=== PATIENT | female | born 1980 | race African-American/Black ===

== ENCOUNTER 2016-03-01 18:25 | Emergency (ER) | payer MEDICAID ==
--- NOTE | 2016-03-01 19:01 | ER Document Report ---
ED Medical Screen (RME) - General Chief Complaint: Fever Stated Complaint: FEVER,VOMITING,DIARRHEA,HEADACHES Time seen by provider: 18:57 Mode of Arrival: Ambulatory Information source: Patient Notes: 35-year-old female presents to ED for nausea vomiting diarrhea fever bodyaches headache and back pain since Monday. States she laid down most the time Monday night and Monday all day. Patient has a elevated blood pressure states she has a history of high blood pressure. She also has a temp of 102.6 in RME I have greeted and performed a rapid initial assessment of this patient. A comprehensive ED assessment and evaluation of the patient, analysis of test results and completion of medical decision making process will be conducted by an additional ED providers. TRAVEL OUTSIDE OF THE [place] IN LAST 30 DAYS: No - Related Data Allergies/Adverse Reactions: latex Allergy (Verified 06/30/15 12:36) Penicillins Allergy (Verified 06/30/15 12:36) Past Medical History - Past Medical History Cardiac Medical History: Reports: Hx Hypertension Neurological Medical History: Reports: Hx Seizures - last 2 weeks - Immunizations Immunizations up to date: Yes Hx Diphtheria, Pertussis, Tetanus Vaccination: Yes
[2016-03-01] MEDS ORDERED: ACETAMINOPHEN 325 MG TABLET PO ONE (19:02)
[2016-03-01 19:04] VITALS: BP 164/110
[2016-03-01 19:44] LABS: VENOUS BLOOD BASE EXCESS 0.8 mmol/L; VENOUS BLOOD HCO3 26.4 mmol/L (20-32); VENOUS BLOOD PCO2 45.6 mmHg (35-63); VENOUS BLOOD PH 7.38 (7.30-7.42)
[2016-03-01 19:47] LABS: ABSOLUTE LYMPHOCYTES (AUTO) 0.7 10^3/uL (0.5-4.7); ABSOLUTE MONOCYTES (AUTO) 0.8 10^3/uL (0.1-1.4); ABSOLUTE NEUT (AUTO) 4.1 10^3/uL (1.7-8.2); BASOPHILS % (AUTO) 0.4 % (0-2); HEMATOCRIT 45.2 % (36.0-47.0); HGB HCT DIFFERENCE -0.2; LYMPHOCYTES % (AUTO) 12.4 % (13-45); MEAN CORPUSCULAR HEMOGLOBIN 31.1 pg (27.0-33.4); MEAN CORPUSCULAR HGB CONC 33.2 g/dL (32.0-36.0); MEAN CORPUSCULAR VOLUME 94 fl (80-97); MONOCYTES % (AUTO) 13.6 % (3-13); RED BLOOD COUNT 4.82 10^6/uL (3.72-5.28); RED CELL DISTRIBUTION WIDTH 12.9 % (11.5-14.0); SEGMENTED NEUTROPHILS % (AUTO) 73.6 % (42-78); WHITE BLOOD COUNT 5.6 10^3/uL (4.0-10.5)
[2016-03-01 19:51] LABS: PROTHROMBIN TIME 12.5 SEC (11.4-15.4)
[2016-03-01 19:52] LABS: APPEARANCE,URINE SLIGHTLY-CLOUDY; BILIRUBIN,URINE NEGATIVE (NEGATIVE); GLUCOSE, URINE NEGATIVE (NEGATIVE); KETONES,URINE TRACE mg/dL (NEGATIVE); LEUKOCYTE ESTERASE,URINE NEGATIVE (NEGATIVE); NITRITE,URINE NEGATIVE (NEGATIVE); PROTEIN,URINE 30 mg/dL (NEGATIVE); URINE SPECIFIC GRAVITY 1.027; UROBILINOGEN,URINE NEGATIVE mg/dL (<2.0)
[2016-03-01 20:02] LABS: ALANINE AMINOTRANSFERASE 37 U/L (9-52); ALBUMIN 5.2 g/dL (3.5-5.0); ALKALINE PHOSPHATASE 57 U/L (38-126); ANION GAP 15 (5-19); ASPARTATE AMINO TRANSFERASE 26 U/L (14-36); BILIRUBIN,TOTAL 0.8 mg/dL (0.2-1.3); BLOOD UREA NITROGEN 9 mg/dL (7-20); CARBON DIOXIDE 27 mmol/L (22-30); CHLORIDE 98 mmol/L (98-107); CREATININE RESULT 1.07 mg/dL (0.52-1.25); GLUCOSE 86 mg/dL (75-110); POTASSIUM 4.1 mmol/L (3.6-5.0); SODIUM 140.1 mmol/L (137-145); TOTAL PROTEIN 8.9 g/dL (6.3-8.2)
--- NOTE | 2016-03-02 14:57 | EKG REPORT ---
SEVERITY:- BORDERLINE ECG - SINUS RHYTHM PROBABLE LEFT ATRIAL ABNORMALITY : Confirmed by: Susan Sullivan MD 02-Mar-2016 14:56:39
== END 2016-03-01 20:45 | disposition left against medical advice (07) ==
LOC: ER 18:25
DX: Z53.9 Procedure and treatment not carried out, unspecified reason (principal); R50.9 Fever, unspecified; R11.10 Vomiting, unspecified; R19.7 Diarrhea, unspecified; R51 Headache
CPT/HCPCS: 93005; 99281; 36415; 87040; 87086; 82962; 84703; 85025; 85610; 80053; 81001; 82803; 83605; 71020; 93010; J3490

== ENCOUNTER 2016-07-31 13:52 | Emergency (ER) | payer MEDICAID ==
[2016-07-31 13:59] VITALS: BP 149/105
--- NOTE | 2016-07-31 16:19 | ER Document Report ---
HPI - HPI Pain Level: 3 Context: 36 yo female presents to ED with 2 complaints. 1.pain to right upper back x 2 days. has had similar pain intermittantly x 6-8 mos. no trauma, + increased stress recently. no radiculpathy, paresthesia, fever. 2. lower abdominal pain x 1 month. dull, intermittant. denies dysuria, vaginal pain or discharge. no fever Associated Symptoms: Nausea Exacerbated by: Movement Relieved by: Denies Similar symptoms previously: Yes - ROS Systems Reviewed and Negative: Yes All other systems reviewed and negative - DERM Skin Color: Normal Past Medical History - General Information source: Patient - Social History Smoking Status: Current Every Day Smoker Frequency of alcohol use: None Lives with: Family Family History: Arthritis, CAD, CVA, DM, Hyperlipidemia, Hypertension, Malignancy. denies: COPD, Thyroid Disfunction Patient has suicidal ideation: No Patient has homicidal ideation: No - Past Medical History Cardiac Medical History: Reports: Hx Hypertension Neurological Medical History: Reports: Hx Seizures - last 2 weeks Renal/ Medical History: Denies: Hx Peritoneal Dialysis - Immunizations Immunizations up to date: Yes Hx Diphtheria, Pertussis, Tetanus Vaccination: Yes Vertical Provider Document - CONSTITUTIONAL Agree With Documented VS: Yes Exam Limitations: No Limitations - INFECTION CONTROL TRAVEL OUTSIDE OF THE [place] IN LAST 30 DAYS: No - HEENT HEENT: Atraumatic, Normal ENT Exam, PERRLA - NECK Neck: Supple, Other - + right trapezius tenderness - RESPIRATORY Respiratory: Breath Sounds Normal, No Respiratory Distress O2 Sat by Pulse Oximetry: 98 - CARDIOVASCULAR Cardiovascular: Regular Rate, Regular Rhythm - GI/ABDOMEN Gastrointestinal: Abdomen Soft, Abdomen Non-Tender, Normal Bowel Sounds. negative: Abdominal Guarding, Abdominal Rebound - BACK Notes: + focal tenderness right periscapular area, + muscle cord palpated. - MUSCULOSKELETAL/EXTREMETIES Musculoskeletal/Extremeties: MAEW, FROM, Non-Tender - NEURO Level of Consciousness: Awake, Alert, Appropriate Course - Re-evaluation Re-evalutation: 07/31/16 17:43 test is postitve pt aware of results BP is noted to be elevated today. + hx/o HTN. denies any chest pain, shortness of breath, headache or dizziness. - Vital Signs Vital signs: Temp Pulse Resp BP Pulse Ox 98.1 F 92 16 149/105 H 98 07/31/16 13:55 07/31/16 13:55 07/31/16 13:55 07/31/16 13:55 07/31/16 13:55 Discharge - Discharge Clinical Impression: Muscle strain, Elevated blood pressure reading Qualifiers: Weeks of gestation: 9 weeks Qualified Code(s): Z3A.09 - 9 weeks gestation of Condition: Stable Disposition: HOME, SELF-CARE Instructions: Ice Packs ([facility]), Warm Packs ([facility]), Muscle Strain ([facility]), ([facility]) Additional Instructions: Your test is postive please follow up with your primary care for an OB referral for care rest and hydrate Your back pain is coming from a muscle strain recommend heat, massage and gentle stretches as demonstrated Forms: Elevated Blood Pressure
[2016-07-31 17:25] LABS: APPEARANCE,URINE SLIGHTLY-CLOUDY; BILIRUBIN,URINE NEGATIVE (NEGATIVE); GLUCOSE, URINE NEGATIVE (NEGATIVE); KETONES,URINE NEGATIVE (NEGATIVE); LEUKOCYTE ESTERASE,URINE NEGATIVE (NEGATIVE); NITRITE,URINE NEGATIVE (NEGATIVE); PROTEIN,URINE NEGATIVE (NEGATIVE); URINE SPECIFIC GRAVITY 1.027; UROBILINOGEN,URINE NEGATIVE mg/dL (<2.0)
== END 2016-07-31 18:01 | disposition home or self-care (01) ==
LOC: ER 13:52
DX: O9A.211 Injury, poisoning and certain other consequences of external causes complicating pregnancy, first trimester (principal); T14.8 Other injury of unspecified body region; O99.89 Other specified diseases and conditions complicating pregnancy, childbirth and the puerperium; M54.89 Other dorsalgia; O26.891 Other specified pregnancy related conditions, first trimester; R10.30 Lower abdominal pain, unspecified; O99.331 Smoking (tobacco) complicating pregnancy, first trimester; O16.1 Unspecified maternal hypertension, first trimester; Z3A.09 9 weeks gestation of pregnancy
CPT/HCPCS: 81001; 81025; 99283

== ENCOUNTER 2016-08-11 00:23 | Emergency (ER) | payer MEDICAID ==
[2016-08-11 00:42] VITALS: BP 187/101
== END 2016-08-11 02:10 | disposition left against medical advice (07) ==
LOC: ER 00:23
DX: Z53.9 Procedure and treatment not carried out, unspecified reason (principal); R53.1 Weakness

== ENCOUNTER 2016-12-26 09:18 | Outpatient (CLI) | payer MEDICAID ==
[2016-12-26 10:00] LABS: APPEARANCE,URINE CLEAR; BILIRUBIN,URINE NEGATIVE (NEGATIVE); GLUCOSE, URINE NEGATIVE (NEGATIVE); KETONES,URINE NEGATIVE (NEGATIVE); LEUKOCYTE ESTERASE,URINE TRACE (NEGATIVE); NITRITE,URINE NEGATIVE (NEGATIVE); PROTEIN,URINE NEGATIVE (NEGATIVE); URINE SPECIFIC GRAVITY 1.025; UROBILINOGEN,URINE NEGATIVE mg/dL (<2.0)
[2016-12-26 10:22] LABS: ABSOLUTE LYMPHOCYTES (AUTO) 1.1 10^3/uL (0.5-4.7); ABSOLUTE MONOCYTES (AUTO) 0.5 10^3/uL (0.1-1.4); ABSOLUTE NEUT (AUTO) 4.9 10^3/uL (1.7-8.2); BASOPHILS % (AUTO) 0.4 % (0-2); EOSINOPHILS % (AUTO) 0.4 % (0-6); HEMATOCRIT 31.8 % (36.0-47.0); HEMOGLOBIN 10.8 g/dL (12.0-15.5); HGB HCT DIFFERENCE 0.6; LYMPHOCYTES % (AUTO) 16.6 % (13-45); MEAN CORPUSCULAR HEMOGLOBIN 31.2 pg (27.0-33.4); MEAN CORPUSCULAR HGB CONC 33.9 g/dL (32.0-36.0); MEAN CORPUSCULAR VOLUME 92 fl (80-97); MONOCYTES % (AUTO) 7.7 % (3-13); RED BLOOD COUNT 3.46 10^6/uL (3.72-5.28); RED CELL DISTRIBUTION WIDTH 12.6 % (11.5-14.0); SEGMENTED NEUTROPHILS % (AUTO) 74.9 % (42-78); WHITE BLOOD COUNT 6.5 10^3/uL (4.0-10.5)
[2016-12-26 10:31] LABS: URINE BARBITURATES SCREEN NEGATIVE; URINE METHADONE SCREEN NEGATIVE; URINE OPIATES LOW NEGATIVE; URINE PHENCYCLIDINE SCREEN NEGATIVE
[2016-12-26 10:37] LABS: ALANINE AMINOTRANSFERASE 25 U/L (9-52); ALBUMIN 3.3 g/dL (3.5-5.0); ALKALINE PHOSPHATASE 38 U/L (38-126); ANION GAP 13 (5-19); ASPARTATE AMINO TRANSFERASE 13 U/L (14-36); BILIRUBIN,DIRECT 0.2 mg/dL (0.0-0.4); BILIRUBIN,TOTAL 0.4 mg/dL (0.2-1.3); BLOOD UREA NITROGEN 5 mg/dL (7-20); CALCIUM 8.7 mg/dL (8.4-10.2); CARBON DIOXIDE 21 mmol/L (22-30); CHLORIDE 106 mmol/L (98-107); CREATININE RESULT 0.69 mg/dL (0.52-1.25); GLUCOSE 118 mg/dL (75-110); LDH 316 U/L (313-618); POTASSIUM 3.4 mmol/L (3.6-5.0); SODIUM 139.7 mmol/L (137-145); URIC ACID 4.3 mg/dL (2.5-6.2)
[2016-12-26 10:42] LABS: URINE CREATININE 269.2 mg/dL (16-327)
== END 2016-12-26 11:22 | disposition home or self-care (01) ==
LOC: LC 09:18
PROVIDERS: ATTEND Student in an Organized Health Care Education/Training Program
DX: O11.2 Pre-existing hypertension with pre-eclampsia, second trimester (principal); Z3A.24 24 weeks gestation of pregnancy
CPT/HCPCS: 36415; 80053; 80307; 81001; 82570; 83615; 84156; 84550; 85025

== ENCOUNTER 2017-01-19 23:09 | Outpatient (CLI) | payer MEDICAID ==
[2017-01-19] MEDS ORDERED: ACETAMINOPHEN 325 MG TABLET PO ONE (23:39)
[2017-01-19] MEDS ORDERED: ACETAMINOPHEN 325 MG TABLET ONE (23:40)
[2017-01-20] MEDS ORDERED: ACETAMINOPHEN WITH CODEINE #3 TABLET PO ONE (00:20)
[2017-01-20] MEDS ORDERED: ACETAMINOPHEN WITH CODEINE #3 TABLET ONE (00:23)
[2017-01-20 01:16] LABS: APPEARANCE,URINE CLEAR; BILIRUBIN,URINE NEGATIVE (NEGATIVE); GLUCOSE, URINE NEGATIVE (NEGATIVE); KETONES,URINE NEGATIVE (NEGATIVE); LEUKOCYTE ESTERASE,URINE NEGATIVE (NEGATIVE); NITRITE,URINE NEGATIVE (NEGATIVE); PROTEIN,URINE NEGATIVE (NEGATIVE); URINE SPECIFIC GRAVITY 1.006; UROBILINOGEN,URINE NEGATIVE mg/dL (<2.0)
[2017-01-20 02:15] LABS: URINE BARBITURATES SCREEN NEGATIVE; URINE METHADONE SCREEN NEGATIVE; URINE PHENCYCLIDINE SCREEN NEGATIVE
[2017-01-20 02:24] LABS: URINE OPIATES LOW UNCONFIRMED POSITIVE
== END 2017-01-20 00:56 | disposition home or self-care (01) ==
LOC: LC 23:09
PROVIDERS: ATTEND Obstetrics & Gynecology Gynecology
PROC: 4A1HXCZ Monitoring of Products of Conception, Cardiac Rate, External Approach (ICD-10-PCS; principal; 2017-01-19)
DX: O36.8130 Decreased fetal movements, third trimester, not applicable or unspecified (principal); Z3A.28 28 weeks gestation of pregnancy
CPT/HCPCS: 81001; 80307; 59899; J3490

== ENCOUNTER 2017-01-20 01:02 | Emergency (ER) | payer MEDICAID ==
[2017-01-20] MEDS ORDERED: BENZONATATE 100 MG CAPSULE PO ONE (01:43)
--- NOTE | 2017-01-20 01:50 | ER Document Report ---
ED General - General Chief Complaint: Toothache Stated Complaint: TOOTHACHE Time Seen by Provider: 01/20/17 01:42 Mode of Arrival: Ambulatory Information source: Patient TRAVEL OUTSIDE OF THE [place] IN LAST 30 DAYS: No - HPI Onset: Other - months. Pt. has been referred to a surgeon for tooth extraction and has follow up next month. Onset/Duration: Waxing and waning Quality of pain: Dull, Throbbing Severity: Severe Associated symptoms: None Exacerbated by: Food Relieved by: Denies, Other - took motrin and tylenol with codeine without relief - Related Data Allergies/Adverse Reactions: Penicillins Allergy (Severe, Verified 01/19/17 23:21) Anaphylaxis latex Allergy (Intermediate, Verified 01/19/17 23:21) Hives Past Medical History - General Information source: Patient - Social History Smoking Status: Former Smoker Frequency of alcohol use: None Drug Abuse: None Lives with: Family Family History: Arthritis, CAD, CVA, DM, Hyperlipidemia, Hypertension, Malignancy. denies: COPD, Thyroid Disfunction Patient has suicidal ideation: No Patient has homicidal ideation: No - Medical History Notes: 27 weeks - Past Medical History Cardiac Medical History: Reports: Hx Hypertension Pulmonary Medical History: Reports: None EENT Medical History: Reports: None Neurological Medical History: Reports: Hx Seizures - last 2 weeks Endocrine Medical History: Reports: None Renal/ Medical History: Denies: Hx Peritoneal Dialysis Malignancy Medical History: Reports: None GI Medical History: Reports: None Musculoskeltal Medical History: Reports None Skin Medical History: Reports None Psychiatric Medical History: Reports: None Traumatic Medical History: Reports: None Infectious Medical History: Reports: None Past Surgical History: Reports: None - Immunizations Immunizations up to date: Yes Hx Diphtheria, Pertussis, Tetanus Vaccination: Yes Review of Systems - Review of Systems EENT: No symptoms reported Cardiovascular: No symptoms reported Respiratory: No symptoms reported Gastrointestinal: No symptoms reported Genitourinary: No symptoms reported Female Genitourinary: No symptoms reported Musculoskeletal: No symptoms reported Neurological/Psychological: No symptoms reported Physical Exam - Vital signs Vitals: Temp Pulse Resp BP Pulse Ox 98.6 F 84 18 186/109 H 98 01/20/17 01:02 01/20/17 01:02 01/20/17 01:02 01/20/17 01:02 01/20/17 01:02 Interpretation: Hypertensive - Notes Notes: PHYSICAL EXAMINATION: GENERAL: Well-appearing, well-nourished in mild distress due to tooth pain.. HEAD: Atraumatic, normocephalic. EYES: Pupils equal round and reactive to light, extraocular movements intact, conjunctiva are normal. ENT: Nares patent, oropharynx clear without exudates. Moist mucous membranes. right lower posterior molar with decay and erythematous surrounding gingiva. NECK: Normal range of motion, supple without lymphadenopathy LUNGS: Breath sounds clear to auscultation bilaterally and equal. No wheezes rales or rhonchi. HEART: Regular rate and rhythm without murmurs ABDOMEN: Gravid. Nontender. Female : deferred Musculoskeletal: Normal range of motion, no pitting or edema. No cyanosis. NEUROLOGICAL: Cranial nerves grossly intact. Normal speech, normal gait. Normal sensory, motor exams PSYCH: Normal mood, normal affect. SKIN: Warm, Dry, normal turgor, no rashes or lesions noted. Course - Re-evaluation Re-evalutation: 01/20/17 02:00 Pt. was seen in OB and evaluated prior to being seen in ED. - Vital Signs Vital signs: Temp Pulse Resp BP Pulse Ox 98.6 F 84 18 185/109 H 98 01/20/17 01:08 01/20/17 01:08 01/20/17 01:02 01/20/17 01:08 01/20/17 01:08 Discharge - Discharge Clinical Impression: Toothache, Tooth decay, Condition: Stable Disposition: HOME, SELF-CARE Additional Instructions: Call your OB tomorrow to discuss pain control options with her. Also call your dentist for follow-up, see if he can see you sooner than your appointment which is next month. Return to the emergency department if you have any fevers. I am not going to place her on antibiotics since you have just finished an extended course. Please be careful with [id number] medications as we discussed. Orajel contains benzocaine and that can be harmful to your baby. Referrals: EDDIE BANUELOS MD [Primary Care Provider] - Follow up as needed
[2017-01-20] MEDS ORDERED: NIFEDIPINE 30 MG TAB.ER.24 PO ONE (02:51)
[2017-01-20 03:00] VITALS: BP 170/106
== END 2017-01-20 03:19 | disposition home or self-care (01) ==
LOC: ER 01:02
DX: K08.89 Other specified disorders of teeth and supporting structures (principal); K02.9 Dental caries, unspecified; Z3A.28 28 weeks gestation of pregnancy; Z87.891 Personal history of nicotine dependence
CPT/HCPCS: 99282; J3490 ×2

== ENCOUNTER 2017-02-20 11:15 | Outpatient (CLI) | payer MEDICAID ==
[2017-02-20 12:23] LABS: APPEARANCE,URINE SLIGHTLY-CLOUDY; BILIRUBIN,URINE NEGATIVE (NEGATIVE); COLOR,URINE YELLOW; GLUCOSE, URINE NEGATIVE (NEGATIVE); KETONES,URINE NEGATIVE (NEGATIVE); LEUKOCYTE ESTERASE,URINE NEGATIVE (NEGATIVE); NITRITE,URINE NEGATIVE (NEGATIVE); PROTEIN,URINE NEGATIVE (NEGATIVE)
[2017-02-20 12:32] LABS: ABSOLUTE LYMPHOCYTES (AUTO) 1.3 10^3/uL (0.5-4.7); ABSOLUTE MONOCYTES (AUTO) 0.5 10^3/uL (0.1-1.4); ABSOLUTE NEUT (AUTO) 4.1 10^3/uL (1.7-8.2); BASOPHILS % (AUTO) 0.3 % (0-2); EOSINOPHILS % (AUTO) 0.4 % (0-6); HEMATOCRIT 32.2 % (36.0-47.0); HEMOGLOBIN 11.1 g/dL (12.0-15.5); LYMPHOCYTES % (AUTO) 21.5 % (13-45); MEAN CORPUSCULAR HEMOGLOBIN 31.4 pg (27.0-33.4); MEAN CORPUSCULAR HGB CONC 34.4 g/dL (32.0-36.0); MEAN CORPUSCULAR VOLUME 91 fl (80-97); PLATELET COUNT 191 10^3/uL (150-450); RED BLOOD COUNT 3.53 10^6/uL (3.72-5.28); RED CELL DISTRIBUTION WIDTH 13.5 % (11.5-14.0); SEGMENTED NEUTROPHILS % (AUTO) 68.8 % (42-78); TOTAL CELLS COUNTED % (AUTO) 100 %; WHITE BLOOD COUNT 5.9 10^3/uL (4.0-10.5)
[2017-02-20 12:32] LABS: URINE AMPHETAMINES SCREEN NEGATIVE; URINE BARBITURATES SCREEN NEGATIVE; URINE BENZODIAZEPINES SCREEN NEGATIVE; URINE COCAINE SCREEN NEGATIVE; URINE MARIJUANA (THC) SCREEN NEGATIVE; URINE METHADONE SCREEN NEGATIVE; URINE PHENCYCLIDINE SCREEN NEGATIVE
[2017-02-20 12:43] LABS: UR PRO/CREAT RATIO RESULT 0.1 mg/mg (0.0-0.2); URINE CREATININE 95.7 mg/dL (16-327)
[2017-02-20 13:04] LABS: ALANINE AMINOTRANSFERASE 14 U/L (9-52); ALBUMIN 3.3 g/dL (3.5-5.0); ALKALINE PHOSPHATASE 55 U/L (38-126); ANION GAP 10 (5-19); ASPARTATE AMINO TRANSFERASE 15 U/L (14-36); BILIRUBIN,DIRECT 0.2 mg/dL (0.0-0.4); BILIRUBIN,TOTAL 0.4 mg/dL (0.2-1.3); BLOOD UREA NITROGEN 7 mg/dL (7-20); CALCIUM 9.2 mg/dL (8.4-10.2); CARBON DIOXIDE 19 mmol/L (22-30); CHLORIDE 107 mmol/L (98-107); GLUCOSE 107 mg/dL (75-110); LDH 358 U/L (313-618); POTASSIUM 3.9 mmol/L (3.6-5.0); SODIUM 135.8 mmol/L (137-145); TOTAL PROTEIN 6.3 g/dL (6.3-8.2); URIC ACID 4.7 mg/dL (2.5-6.2)
--- NOTE | 2017-02-20 13:39 | Non Stress Test Report ---
Non Stress Test Datetime Report Generated by CPN: 02/20/2017 13:38 DEMOGRAPHIC EGA NST: 32.4 INDICATION Indication for Study: Ordered by Provider VITAL SIGNS Temperature - NST: 97.6 Pulse - NST: 90 RESP - NST: 14 NBPSYS NST: 140 NBPDIA NST: 86 MONITORING Monitor Explained: Monitor Explained; Test Explained; Patient Verbalized Understanding Time on Monitor: 02/20/2017 11:34 Time off Monitor: 02/20/2017 12:20 NST Duration: 46 NST INTERVENTIONS NST Interventions: PO Hydration Physician Notified NST: A Gutiérrez CNM BABY A: [id number] BABY A Movement : Present Contraction Frequency : none FHR Baseline : 130 Accelerations : 15X15 Decelerations : None Variability : Moderate 6-25bpm NST Review: Meets Criteria for Reactive NST NST Review and Verified By : Jeromy Balbuena RN NST Results: Reactive NST REPORT Report Trigger: Send Report
== END 2017-02-20 13:40 | disposition home or self-care (01) ==
LOC: LC 11:15
PROVIDERS: ATTEND Obstetrics & Gynecology
PROC: 4A1HXCZ Monitoring of Products of Conception, Cardiac Rate, External Approach (ICD-10-PCS; principal; 2017-02-20)
DX: O47.03 False labor before 37 completed weeks of gestation, third trimester (principal); O16.3 Unspecified maternal hypertension, third trimester; Z3A.32 32 weeks gestation of pregnancy
CPT/HCPCS: 36415; 59025; 80053; 80307; 81001; 82570; 83615; 84156; 84550; 85025

== ENCOUNTER 2017-02-27 11:47 | Outpatient (CLI) | payer MEDICAID ==
[2017-02-27] MEDS ORDERED: NIFEDIPINE 30 MG TAB.ER.24 PO ONE ×2 (12:17→12:20)
[2017-02-27 12:48] LABS: APPEARANCE,URINE CLOUDY; BILIRUBIN,URINE NEGATIVE (NEGATIVE); COLOR,URINE YELLOW; GLUCOSE, URINE NEGATIVE (NEGATIVE); KETONES,URINE NEGATIVE (NEGATIVE); LEUKOCYTE ESTERASE,URINE NEGATIVE (NEGATIVE); NITRITE,URINE NEGATIVE (NEGATIVE); PROTEIN,URINE NEGATIVE (NEGATIVE); URINE SPECIFIC GRAVITY 1.011; UROBILINOGEN,URINE NEGATIVE mg/dL (<2.0)
[2017-02-27 13:04] LABS: UR PRO/CREAT RATIO RESULT 0.2 mg/mg (0.0-0.2); URINE CREATININE 136.3 mg/dL (16-327); URINE PROTEIN 24.8 mg/dL (<12)
[2017-02-27 13:10] LABS: URINE AMPHETAMINES SCREEN NEGATIVE; URINE BARBITURATES SCREEN NEGATIVE; URINE BENZODIAZEPINES SCREEN NEGATIVE; URINE COCAINE SCREEN NEGATIVE; URINE MARIJUANA (THC) SCREEN NEGATIVE; URINE METHADONE SCREEN NEGATIVE; URINE PHENCYCLIDINE SCREEN NEGATIVE
[2017-02-27 14:10] LABS: ABSOLUTE LYMPHOCYTES (AUTO) 1.2 10^3/uL (0.5-4.7); ABSOLUTE MONOCYTES (AUTO) 0.5 10^3/uL (0.1-1.4); BASOPHILS % (AUTO) 0.3 % (0-2); EOSINOPHILS % (AUTO) 0.6 % (0-6); HEMATOCRIT 33.1 % (36.0-47.0); HEMOGLOBIN 11.3 g/dL (12.0-15.5); MEAN CORPUSCULAR HEMOGLOBIN 30.9 pg (27.0-33.4); MEAN CORPUSCULAR HGB CONC 34.1 g/dL (32.0-36.0); MEAN CORPUSCULAR VOLUME 90 fl (80-97); MONOCYTES % (AUTO) 9.4 % (3-13); PLATELET COUNT 181 10^3/uL (150-450); RED BLOOD COUNT 3.66 10^6/uL (3.72-5.28); RED CELL DISTRIBUTION WIDTH 13.3 % (11.5-14.0); SEGMENTED NEUTROPHILS % (AUTO) 68.7 % (42-78); TOTAL CELLS COUNTED % (AUTO) 100 %; WHITE BLOOD COUNT 5.8 10^3/uL (4.0-10.5)
[2017-02-27 14:32] LABS: ALANINE AMINOTRANSFERASE 16 U/L (9-52); ALBUMIN 3.4 g/dL (3.5-5.0); ALKALINE PHOSPHATASE 60 U/L (38-126); ANION GAP 8 (5-19); ASPARTATE AMINO TRANSFERASE 14 U/L (14-36); BILIRUBIN,DIRECT 0.1 mg/dL (0.0-0.4); BILIRUBIN,TOTAL 0.4 mg/dL (0.2-1.3); BLOOD UREA NITROGEN 5 mg/dL (7-20); CALCIUM 9.4 mg/dL (8.4-10.2); CARBON DIOXIDE 21 mmol/L (22-30); CHLORIDE 107 mmol/L (98-107); GLUCOSE 85 mg/dL (75-110); LDH 346 U/L (313-618); POTASSIUM 3.7 mmol/L (3.6-5.0); SODIUM 135.7 mmol/L (137-145); URIC ACID 4.9 mg/dL (2.5-6.2)
== END 2017-02-27 15:04 | disposition home or self-care (01) ==
LOC: LC 11:47
PROVIDERS: ATTEND Obstetrics & Gynecology
PROC: 4A1HXCZ Monitoring of Products of Conception, Cardiac Rate, External Approach (ICD-10-PCS; principal; 2017-02-27)
DX: O10.913 Unspecified pre-existing hypertension complicating pregnancy, third trimester (principal); Z3A.33 33 weeks gestation of pregnancy
CPT/HCPCS: 59025; 36415; 83615; 84156; 84550; 82570; 85025; 80053; 81001; 80307; J3490

== ENCOUNTER 2017-03-05 15:04 | Emergency (ER) | payer MEDICAID ==
[2017-03-05 16:04] LABS: APPEARANCE,URINE SLIGHTLY-CLOUDY; BILIRUBIN,URINE NEGATIVE (NEGATIVE); COLOR,URINE YELLOW; GLUCOSE, URINE NEGATIVE (NEGATIVE); KETONES,URINE NEGATIVE (NEGATIVE); LEUKOCYTE ESTERASE,URINE NEGATIVE (NEGATIVE); NITRITE,URINE NEGATIVE (NEGATIVE); PROTEIN,URINE NEGATIVE (NEGATIVE); URINE SPECIFIC GRAVITY 1.009; UROBILINOGEN,URINE NEGATIVE mg/dL (<2.0)
[2017-03-05 16:05] LABS: ABSOLUTE LYMPHOCYTES (AUTO) 1.4 10^3/uL (0.5-4.7); ABSOLUTE MONOCYTES (AUTO) 0.6 10^3/uL (0.1-1.4); ABSOLUTE NEUT (AUTO) 5.2 10^3/uL (1.7-8.2); BASOPHILS % (AUTO) 0.5 % (0-2); EOSINOPHILS % (AUTO) 0.4 % (0-6); HEMATOCRIT 37.1 % (36.0-47.0); HEMOGLOBIN 12.6 g/dL (12.0-15.5); LYMPHOCYTES % (AUTO) 19.2 % (13-45); MEAN CORPUSCULAR HEMOGLOBIN 31.1 pg (27.0-33.4); MEAN CORPUSCULAR HGB CONC 34.1 g/dL (32.0-36.0); MEAN CORPUSCULAR VOLUME 91 fl (80-97); MONOCYTES % (AUTO) 8.2 % (3-13); PLATELET COUNT 209 10^3/uL (150-450); RED BLOOD COUNT 4.07 10^6/uL (3.72-5.28); RED CELL DISTRIBUTION WIDTH 13.2 % (11.5-14.0); SEGMENTED NEUTROPHILS % (AUTO) 71.7 % (42-78); TOTAL CELLS COUNTED % (AUTO) 100 %; WHITE BLOOD COUNT 7.2 10^3/uL (4.0-10.5)
--- NOTE | 2017-03-05 16:10 | ER Document Report ---
ED General - General Chief Complaint: High Blood Pressure Stated Complaint: BLOOD PRESSURE ISSUES Time Seen by Provider: 03/05/17 15:21 Mode of Arrival: Ambulatory Information source: Patient Notes: 36-year-old female who is 36 weeks presents with complaints of high blood pressure. Patient is already on blood pressure medication notes she has been seen multiple times for preeclampsia and has never had it. She denies any swelling in her extremities admits to a headache without any visual disturbances pt denies any related pain bleeding or ocncerns TRAVEL OUTSIDE OF THE [place] IN LAST 30 DAYS: No - HPI Onset: Other Onset/Duration: Intermittent Quality of pain: Achy Severity: Mild Pain Level: 1 Associated symptoms: Headache Exacerbated by: Denies Relieved by: Denies Similar symptoms previously: No Recently seen / treated by doctor: No - Related Data Allergies/Adverse Reactions: Penicillins Allergy (Severe, Verified 03/05/17 15:04) Anaphylaxis latex Allergy (Intermediate, Verified 03/05/17 15:04) Hives Past Medical History - Social History Smoking Status: Former Smoker Cigarette use (# per day): No Chew tobacco use (# tins/day): No Smoking Education Provided: No Frequency of alcohol use: None Drug Abuse: None Family History: Arthritis, CAD, CVA, DM, Hyperlipidemia, Hypertension, Malignancy. denies: COPD, Thyroid Disfunction Patient has suicidal ideation: No Patient has homicidal ideation: No - Past Medical History Cardiac Medical History: Reports: Hx Hypertension - Procardia (lisinopril failed ) Neurological Medical History: Reports: Hx Seizures - no meds, last 2016 Renal/ Medical History: Denies: Hx Peritoneal Dialysis - Immunizations Immunizations up to date: Yes Hx Diphtheria, Pertussis, Tetanus Vaccination: Yes Review of Systems - Review of Systems Notes: REVIEW OF SYSTEMS: CONSTITUTIONAL : Denies fever, chills, or sweats. Denies recent illness. EENT: Denies eye, ear, throat, or mouth pain or symptoms. Denies nasal or sinus congestion or discharge. Denies throat, tongue, or mouth swelling or difficulty swallowing. CARDIOVASCULAR: Denies chest pain. Denies palpitations or racing or irregular heart beat. Denies ankle edema. RESPIRATORY: Denies cough, cold, or chest congestion. Denies shortness of breath, difficulty breathing, or wheezing. GASTROINTESTINAL: Denies abdominal pain or distention. Denies nausea, vomiting , or diarrhea. Denies blood in vomitus, stools, or per rectum. Denies black, tarry stools. Denies constipation. GENITOURINARY: Denies difficulty urinating, painful urination, burning, frequency, blood in urine, or discharge. FEMALE GENITOURINARY: Denies vaginal bleeding, heavy or abnormal periods, irregular periods. Denies vaginal discharge or odor. MUSCULOSKELETAL: Denies back or neck pain or stiffness. Denies joint pain or swelling. SKIN: Denies rash, lesions or sores. HEMATOLOGIC : Denies easy bruising or bleeding. LYMPHATIC: Denies swollen, enlarged glands. NEUROLOGICAL: mild headache PSYCHIATRIC: Denies anxiety or stress. Denies depression, suicidal ideation, or homicidal ideation. ALL OTHER SYSTEMS REVIEWED AND NEGATIVE. PHYSICAL EXAMINATION: GENERAL: Well-appearing, well-nourished and in no acute distress. HEAD: Atraumatic, normocephalic. EYES: Pupils equal round and reactive to light, extraocular movements intact, conjunctiva are normal. ENT: Nares patent, oropharynx clear without exudates. Moist mucous membranes. NECK: Normal range of motion, supple without lymphadenopathy LUNGS: Breath sounds clear to auscultation bilaterally and equal. No wheezes rales or rhonchi. HEART: Regular rate and rhythm without murmurs ABDOMEN: gravid abd non tender Female : deferred Musculoskeletal: Normal range of motion, no pitting or edema. No cyanosis. NEUROLOGICAL: Cranial nerves grossly intact. Normal speech, normal gait. Normal sensory, motor exams PSYCH: Normal mood, normal affect. SKIN: Warm, Dry, normal turgor, no rashes or lesions noted. Dictation was performed using [employer] voice recognition software Physical Exam - Vital signs Vitals: Temp Pulse Resp BP Pulse Ox 98.3 F 106 H 20 137/90 H 96 03/05/17 15:08 03/05/17 15:08 03/05/17 15:08 03/05/17 15:08 03/05/17 15:08 Course - Re-evaluation Re-evalutation: 03/05/17 16:59 Patient's presenting blood pressure is not worrisome for preeclampsia, she is on medications, patient otherwise looks well in no distress, I will discharge home as lab work noted no acute abnormality. Patient is very happy with this plan. After performing a Medical Screening Examination, I estimate there is LOW risk for ACUTE GLAUCOMA, TEMPORAL ARTERITIS, MENINGITIS, INCRANIAL HEMORRHAGE, or ISCHEMIC STROKE thus I consider the discharge disposition reasonable. I have reevaluated this patient multiple times and no significant life threatening changes are noted. The patient and I have discussed the diagnosis and risks, and we agree with discharging home with close follow-up with the understanding that symptoms and presentations can change. We also discussed returning to the Emergency Department immediately if new or worsening symptoms occur. We have discussed the symptoms which are most concerning (e.g., changing or worsening symptoms, new numbness or weakness, vomiting, fever) that necessitate immediate return. - Vital Signs Vital signs: Temp Pulse Resp BP Pulse Ox 98.3 F 106 H 20 137/90 H 96 03/05/17 15:08 03/05/17 15:08 03/05/17 15:08 03/05/17 15:08 03/05/17 15:08 - Laboratory Result Diagrams: 03/05/17 15:42 03/05/17 15:42 Laboratory results interpreted by me: 03/05/17 15:42 BUN 4 L Glucose 121 H Discharge - Discharge Clinical Impression: htn in Headache Qualifiers: Headache type: unspecified Headache chronicity pattern: acute headache Intractability: not intractable Qualified Code(s): R51 - Headache Condition: Stable Disposition: HOME, SELF-CARE Instructions: High Blood Pressure ([facility]) Additional Instructions: Follow up with your physician tomorrow for further care or return to the ED IMMEDIATELY if symptoms worsen or new concerns occur. If you cannot afford to follow up with your primary care physician a list of low cost clinics have been provided at the end of your discharge papers as well.
[2017-03-05 16:15] LABS: ALANINE AMINOTRANSFERASE 12 U/L (9-52); ALKALINE PHOSPHATASE 77 U/L (38-126); ANION GAP 11 (5-19); ASPARTATE AMINO TRANSFERASE 16 U/L (14-36); BILIRUBIN,DIRECT 0.2 mg/dL (0.0-0.4); BILIRUBIN,TOTAL 0.5 mg/dL (0.2-1.3); BLOOD UREA NITROGEN 4 mg/dL (7-20); CALCIUM 9.7 mg/dL (8.4-10.2); CARBON DIOXIDE 23 mmol/L (22-30); CHLORIDE 104 mmol/L (98-107); GLUCOSE 121 mg/dL (75-110); POTASSIUM 3.9 mmol/L (3.6-5.0); SODIUM 137.7 mmol/L (137-145); TOTAL PROTEIN 7.3 g/dL (6.3-8.2)
[2017-03-05 16:52] VITALS: BP 131/86
== END 2017-03-05 16:30 | disposition home or self-care (01) ==
LOC: ER 15:04
DX: O16.3 Unspecified maternal hypertension, third trimester (principal); R51 Headache; Z3A.36 36 weeks gestation of pregnancy; Z87.891 Personal history of nicotine dependence
CPT/HCPCS: 36415; 80053; 81001; 85025; 99284

== ENCOUNTER 2017-03-10 10:17 | Outpatient (CLI) | payer MEDICAID ==
[2017-03-10 11:14] LABS: APPEARANCE,URINE SLIGHTLY-CLOUDY; BILIRUBIN,URINE NEGATIVE (NEGATIVE); COLOR,URINE YELLOW; GLUCOSE, URINE NEGATIVE (NEGATIVE); KETONES,URINE NEGATIVE (NEGATIVE); LEUKOCYTE ESTERASE,URINE NEGATIVE (NEGATIVE); NITRITE,URINE NEGATIVE (NEGATIVE); PROTEIN,URINE NEGATIVE (NEGATIVE); URINE SPECIFIC GRAVITY 1.015; UROBILINOGEN,URINE NEGATIVE mg/dL (<2.0)
[2017-03-10 11:35] LABS: URINE AMPHETAMINES SCREEN NEGATIVE; URINE BARBITURATES SCREEN NEGATIVE; URINE BENZODIAZEPINES SCREEN NEGATIVE; URINE COCAINE SCREEN NEGATIVE; URINE MARIJUANA (THC) SCREEN NEGATIVE; URINE METHADONE SCREEN NEGATIVE; URINE PHENCYCLIDINE SCREEN NEGATIVE
[2017-03-10 11:37] LABS: ABSOLUTE LYMPHOCYTES (AUTO) 1.4 10^3/uL (0.5-4.7); ABSOLUTE MONOCYTES (AUTO) 0.6 10^3/uL (0.1-1.4); BASOPHILS % (AUTO) 0.6 % (0-2); EOSINOPHILS % (AUTO) 0.6 % (0-6); HEMATOCRIT 32.4 % (36.0-47.0); HEMOGLOBIN 11.3 g/dL (12.0-15.5); LYMPHOCYTES % (AUTO) 22.4 % (13-45); MEAN CORPUSCULAR HEMOGLOBIN 31.8 pg (27.0-33.4); MEAN CORPUSCULAR VOLUME 91 fl (80-97); MONOCYTES % (AUTO) 10.1 % (3-13); PLATELET COUNT 177 10^3/uL (150-450); RED BLOOD COUNT 3.56 10^6/uL (3.72-5.28); RED CELL DISTRIBUTION WIDTH 13.6 % (11.5-14.0); SEGMENTED NEUTROPHILS % (AUTO) 66.3 % (42-78); TOTAL CELLS COUNTED % (AUTO) 100 %; WHITE BLOOD COUNT 6.1 10^3/uL (4.0-10.5)
[2017-03-10 11:39] LABS: UR PRO/CREAT RATIO RESULT 0.1 mg/mg (0.0-0.2); URINE PROTEIN 12.6 mg/dL (<12)
[2017-03-10 11:57] LABS: URIC ACID 5.1 mg/dL (2.5-6.2)
[2017-03-10 12:34] LABS: ALANINE AMINOTRANSFERASE 16 U/L (9-52); ALBUMIN 3.3 g/dL (3.5-5.0); ALKALINE PHOSPHATASE 69 U/L (38-126); ANION GAP 11 (5-19); ASPARTATE AMINO TRANSFERASE 17 U/L (14-36); BILIRUBIN,DIRECT 0.1 mg/dL (0.0-0.4); BILIRUBIN,TOTAL 0.3 mg/dL (0.2-1.3); BLOOD UREA NITROGEN 6 mg/dL (7-20); CALCIUM 8.7 mg/dL (8.4-10.2); CARBON DIOXIDE 20 mmol/L (22-30); CHLORIDE 105 mmol/L (98-107); GLUCOSE 123 mg/dL (75-110); POTASSIUM 3.8 mmol/L (3.6-5.0); SODIUM 135.6 mmol/L (137-145); TOTAL PROTEIN 6.4 g/dL (6.3-8.2)
--- NOTE | 2017-03-10 12:41 | Non Stress Test Report ---
Non Stress Test Datetime Report Generated by CPN: 03/10/2017 12:40 DEMOGRAPHIC EGA NST: 35.1 EGA NST: 33.4 INDICATION Indication for Study: Chronic Hypertension Indication for Study: Chronic Hypertension; Ordered by Provider MONITORING Monitor Explained: Monitor Explained; Test Explained; Patient Verbalized Understanding Monitor Explained: Monitor Explained; Test Explained; Patient Verbalized Understanding Time on Monitor: 03/10/2017 10:35 Time on Monitor: 02/27/2017 13:40 Time off Monitor: 03/10/2017 11:03 Time off Monitor: 02/27/2017 14:20 NST Duration: 28 NST Duration: 40 NST INTERVENTIONS NST Interventions: PO Hydration; Reposition Patient NST Interventions: None Physician Notified NST: Dr Love Physician Notified NST: J Hernandez CNM BABY A: [id number] BABY A Movement : Present Movement : Present Contraction Frequency : none Contraction Frequency : Irr FHR Baseline : 130 FHR Baseline : 125 Accelerations : 15X15 Accelerations : 15X15 Decelerations : None Decelerations : None Variability : Moderate 6-25bpm Variability : Moderate 6-25bpm NST Review: Meets Criteria for Reactive NST NST Review: Meets Criteria for Reactive NST NST Review and Verified By : Taiwo CORREA NST Results: Reactive NST Results: Reactive NST REPORT Report Trigger: Send Report
== END 2017-03-10 12:33 | disposition home or self-care (01) ==
LOC: LC 10:17
PROVIDERS: ATTEND Obstetrics & Gynecology
PROC: 4A1HXCZ Monitoring of Products of Conception, Cardiac Rate, External Approach (ICD-10-PCS; principal; 2017-03-10)
DX: O10.913 Unspecified pre-existing hypertension complicating pregnancy, third trimester (principal); Z3A.35 35 weeks gestation of pregnancy
CPT/HCPCS: 36415; 59025; 80053; 80307; 81001; 82570; 83615; 84156; 84550; 85025

== ENCOUNTER 2017-03-13 21:45 | Outpatient (CLI) | payer MEDICAID ==
[2017-03-13 22:12] LABS: APPEARANCE,URINE CLEAR; BILIRUBIN,URINE NEGATIVE (NEGATIVE); COLOR,URINE STRAW; GLUCOSE, URINE NEGATIVE (NEGATIVE); KETONES,URINE NEGATIVE (NEGATIVE); LEUKOCYTE ESTERASE,URINE NEGATIVE (NEGATIVE); NITRITE,URINE NEGATIVE (NEGATIVE); PROTEIN,URINE NEGATIVE (NEGATIVE); URINE SPECIFIC GRAVITY 1.006; UROBILINOGEN,URINE NEGATIVE mg/dL (<2.0)
[2017-03-13 22:37] LABS: URINE AMPHETAMINES SCREEN NEGATIVE; URINE BARBITURATES SCREEN NEGATIVE; URINE BENZODIAZEPINES SCREEN NEGATIVE; URINE COCAINE SCREEN NEGATIVE; URINE MARIJUANA (THC) SCREEN NEGATIVE; URINE METHADONE SCREEN NEGATIVE; URINE PHENCYCLIDINE SCREEN NEGATIVE
== END 2017-03-13 23:09 | disposition home or self-care (01) ==
LOC: LC 21:45
PROVIDERS: ATTEND Obstetrics & Gynecology
PROC: 4A1HXCZ Monitoring of Products of Conception, Cardiac Rate, External Approach (ICD-10-PCS; principal; 2017-03-13)
DX: O47.03 False labor before 37 completed weeks of gestation, third trimester (principal); Z3A.35 35 weeks gestation of pregnancy
CPT/HCPCS: 59025; 80307; 81005

== ENCOUNTER 2017-03-17 10:49 | Outpatient (CLI) | payer MEDICAID ==
--- NOTE | 2017-03-17 11:01 | Non Stress Test Report ---
Non Stress Test Datetime Report Generated by CPN: 03/17/2017 11:01 DEMOGRAPHIC EGA NST: 35.4 INDICATION Indication for Study: Other Indication for Study (NST) Other: LC MONITORING Monitor Explained: Monitor Explained; Test Explained; Patient Verbalized Understanding Time on Monitor: 03/13/2017 22:06 Time off Monitor: 03/13/2017 22:55 NST Duration: 49 NST INTERVENTIONS NST Interventions: PO Hydration Physician Notified NST: Reardon BABY A: [id number] BABY A Movement : Present Contraction Frequency : x1 +irritablity FHR Baseline : 130 Accelerations : 15X15 Decelerations : None Variability : Moderate 6-25bpm NST Review: Meets Criteria for Reactive NST NST Review and Verified By : B Sarabia, RN NST Results: Reactive NST REPORT Report Trigger: Send Report
[2017-03-17 11:42] LABS: ABSOLUTE BASOPHILS # (AUTO) 0.1 10^3/uL (0.0-0.2); ABSOLUTE MONOCYTES (AUTO) 0.4 10^3/uL (0.1-1.4); ABSOLUTE NEUT (AUTO) 5.1 10^3/uL (1.7-8.2); BASOPHILS % (AUTO) 1.7 % (0-2); EOSINOPHILS % (AUTO) 0.3 % (0-6); HEMATOCRIT 31.2 % (36.0-47.0); HEMOGLOBIN 10.8 g/dL (12.0-15.5); LYMPHOCYTES % (AUTO) 14.5 % (13-45); MEAN CORPUSCULAR HEMOGLOBIN 31.3 pg (27.0-33.4); MEAN CORPUSCULAR HGB CONC 34.6 g/dL (32.0-36.0); MEAN CORPUSCULAR VOLUME 91 fl (80-97); MONOCYTES % (AUTO) 6.1 % (3-13); PLATELET COUNT 179 10^3/uL (150-450); RED BLOOD COUNT 3.44 10^6/uL (3.72-5.28); RED CELL DISTRIBUTION WIDTH 13.3 % (11.5-14.0); SEGMENTED NEUTROPHILS % (AUTO) 77.4 % (42-78); TOTAL CELLS COUNTED % (AUTO) 100 %; WHITE BLOOD COUNT 6.6 10^3/uL (4.0-10.5)
[2017-03-17 12:00] LABS: ALANINE AMINOTRANSFERASE 13 U/L (9-52); ALBUMIN 3.2 g/dL (3.5-5.0); ALKALINE PHOSPHATASE 73 U/L (38-126); ANION GAP 7 (5-19); ASPARTATE AMINO TRANSFERASE 15 U/L (14-36); BILIRUBIN,TOTAL 0.3 mg/dL (0.2-1.3); BLOOD UREA NITROGEN 7 mg/dL (7-20); CALCIUM 8.9 mg/dL (8.4-10.2); CARBON DIOXIDE 22 mmol/L (22-30); CHLORIDE 106 mmol/L (98-107); GLUCOSE 166 mg/dL (75-110); LDH 327 U/L (313-618); POTASSIUM 3.8 mmol/L (3.6-5.0); TOTAL PROTEIN 5.7 g/dL (6.3-8.2); URIC ACID 5.5 mg/dL (2.5-6.2)
[2017-03-17 12:05] LABS: APPEARANCE,URINE CLEAR; BILIRUBIN,URINE NEGATIVE (NEGATIVE); COLOR,URINE YELLOW; GLUCOSE, URINE NEGATIVE (NEGATIVE); KETONES,URINE NEGATIVE (NEGATIVE); LEUKOCYTE ESTERASE,URINE NEGATIVE (NEGATIVE); NITRITE,URINE NEGATIVE (NEGATIVE); PROTEIN,URINE NEGATIVE (NEGATIVE); URINE SPECIFIC GRAVITY 1.008; UROBILINOGEN,URINE NEGATIVE mg/dL (<2.0)
[2017-03-17 12:23] LABS: URINE AMPHETAMINES SCREEN NEGATIVE; URINE BARBITURATES SCREEN NEGATIVE; URINE BENZODIAZEPINES SCREEN NEGATIVE; URINE COCAINE SCREEN NEGATIVE; URINE MARIJUANA (THC) SCREEN NEGATIVE; URINE METHADONE SCREEN NEGATIVE; URINE PHENCYCLIDINE SCREEN NEGATIVE
[2017-03-17 12:36] LABS: UR PRO/CREAT RATIO RESULT 0.2 mg/mg (0.0-0.2); URINE CREATININE 81.7 mg/dL (16-327); URINE PROTEIN 18.4 mg/dL (<12)
--- NOTE | 2017-03-17 12:58 | Non Stress Test Report ---
Non Stress Test Datetime Report Generated by CPN: 03/17/2017 12:58 DEMOGRAPHIC EGA NST: 36.1 INDICATION Indication for Study: Ordered by Provider VITAL SIGNS Temperature - NST: 97.5 Pulse - NST: 96 RESP - NST: 14 NBPSYS NST: 126 NBPDIA NST: 78 MONITORING Monitor Explained: Monitor Explained; Test Explained; Patient Verbalized Understanding Time on Monitor: 03/17/2017 11:05 Time off Monitor: 03/17/2017 11:25 NST Duration: 20 NST INTERVENTIONS NST Interventions: PO Hydration Physician Notified NST: H Raphael CNM BABY A Movement : Present Contraction Frequency : none FHR Baseline : 125 Accelerations : 15X15 Decelerations : None Variability : Moderate 6-25bpm NST Review: Meets Criteria for Reactive NST NST Review and Verified By : Mariluz Wilks RNC NST Results: Reactive NST REPORT Report Trigger: Send Report
== END 2017-03-17 12:55 | disposition home or self-care (01) ==
LOC: LC 10:49
PROVIDERS: ATTEND Obstetrics & Gynecology
PROC: 4A1HXCZ Monitoring of Products of Conception, Cardiac Rate, External Approach (ICD-10-PCS; principal; 2017-03-17)
DX: Z34.93 Encounter for supervision of normal pregnancy, unspecified, third trimester (principal); Z3A.36 36 weeks gestation of pregnancy
CPT/HCPCS: 36415; 59025; 80053; 80307; 81001; 82570; 83615; 84156; 84550; 85025

== ENCOUNTER 2017-03-20 10:45 | Inpatient (IN) | payer MEDICAID ==
[2017-03-20] MEDS ORDERED: RINGERS SOLUTION,LACTATED 1,000 ML IV PRN ×2 (10:57→11:40)
[2017-03-20] MEDS ORDERED: RINGERS SOLUTION,LACTATED 1,000 ML IV ONE (10:57)
[2017-03-20 11:22] LABS: APPEARANCE,URINE SLIGHTLY-CLOUDY; BILIRUBIN,URINE NEGATIVE (NEGATIVE); COLOR,URINE YELLOW; GLUCOSE, URINE NEGATIVE (NEGATIVE); KETONES,URINE NEGATIVE (NEGATIVE); LEUKOCYTE ESTERASE,URINE NEGATIVE (NEGATIVE); NITRITE,URINE NEGATIVE (NEGATIVE); PROTEIN,URINE NEGATIVE (NEGATIVE); URINE SPECIFIC GRAVITY 1.011; UROBILINOGEN,URINE NEGATIVE mg/dL (<2.0)
[2017-03-20] MEDS ORDERED: MAGNESIUM SULFATE 4 GM/100 ML RTUPB IV ONE (11:36)
[2017-03-20] MEDS ORDERED: RINGERS SOLUTION,LACTATED 300 ML IV ONE (11:40)
[2017-03-20] MEDS ORDERED: DINOPROSTONE 10 MG VAGINAL INSERT.SR PV PRN (11:40)
[2017-03-20 11:42] LABS: URINE AMPHETAMINES SCREEN NEGATIVE; URINE BARBITURATES SCREEN NEGATIVE; URINE BENZODIAZEPINES SCREEN NEGATIVE; URINE COCAINE SCREEN NEGATIVE; URINE MARIJUANA (THC) SCREEN NEGATIVE; URINE METHADONE SCREEN NEGATIVE; URINE PHENCYCLIDINE SCREEN NEGATIVE
[2017-03-20 11:50] LABS: UR PRO/CREAT RATIO RESULT 0.1 mg/mg (0.0-0.2); URINE CREATININE 125.5 mg/dL (16-327); URINE PROTEIN 18.8 mg/dL (<12)
[2017-03-20 11:59] LABS: ABSOLUTE LYMPHOCYTES (AUTO) 1.1 10^3/uL (0.5-4.7); ABSOLUTE MONOCYTES (AUTO) 0.6 10^3/uL (0.1-1.4); ABSOLUTE NEUT (AUTO) 4.1 10^3/uL (1.7-8.2); BASOPHILS % (AUTO) 0.4 % (0-2); EOSINOPHILS % (AUTO) 0.4 % (0-6); HEMATOCRIT 32.5 % (36.0-47.0); HEMOGLOBIN 11.1 g/dL (12.0-15.5); LYMPHOCYTES % (AUTO) 18.4 % (13-45); MEAN CORPUSCULAR HEMOGLOBIN 31.2 pg (27.0-33.4); MEAN CORPUSCULAR HGB CONC 34.3 g/dL (32.0-36.0); MEAN CORPUSCULAR VOLUME 91 fl (80-97); MONOCYTES % (AUTO) 10.1 % (3-13); PLATELET COUNT 183 10^3/uL (150-450); RED BLOOD COUNT 3.57 10^6/uL (3.72-5.28); RED CELL DISTRIBUTION WIDTH 13.6 % (11.5-14.0); SEGMENTED NEUTROPHILS % (AUTO) 70.7 % (42-78); TOTAL CELLS COUNTED % (AUTO) 100 %; WHITE BLOOD COUNT 5.7 10^3/uL (4.0-10.5)
[2017-03-20] MEDS ORDERED: DINOPROSTONE 10 MG VAGINAL INSERT.SR ONE (12:14)
[2017-03-20 12:27] LABS: ALANINE AMINOTRANSFERASE 21 U/L (9-52); ALBUMIN 3.1 g/dL (3.5-5.0); ALKALINE PHOSPHATASE 75 U/L (38-126); ANION GAP 9 (5-19); ASPARTATE AMINO TRANSFERASE 14 U/L (14-36); BILIRUBIN,DIRECT 0.4 mg/dL (0.0-0.4); BILIRUBIN,TOTAL 0.4 mg/dL (0.2-1.3); BLOOD UREA NITROGEN 6 mg/dL (7-20); CARBON DIOXIDE 21 mmol/L (22-30); CHLORIDE 107 mmol/L (98-107); GLUCOSE 100 mg/dL (75-110); LDH 338 U/L (313-618); SODIUM 137.3 mmol/L (137-145); TOTAL PROTEIN 6.2 g/dL (6.3-8.2); URIC ACID 5.4 mg/dL (2.5-6.2)
[2017-03-20] MEDS ORDERED: HYDRALAZINE HCL INJ/PF 20 MG/1 ML SDV IV ONE ×2 (13:09→20:52)
[2017-03-20] MEDS: MAGNESIUM SULFATE 20 GM/500 ML RTUINJ IV PRN (13:18)
[2017-03-20] MEDS ORDERED: MAG HYDROX/AL HYDROX/SIMETH SUSP 30 ML UDCUP ONE (15:16)
[2017-03-20] MEDS ORDERED: VANCOMYCIN HCL INJ 1000 MG VIAL ONE (15:36)
[2017-03-20] MEDS ORDERED: MAG HYDROX/AL HYDROX/SIMETH SUSP 30 ML UDCUP PO ONE (16:00)
[2017-03-20] MEDS: VANCOMYCIN HCL 1,000 MG in DEXTROSE 5%-WATER 250 ML IV SCH (16:09)
[2017-03-20] MEDS ORDERED: HYDRALAZINE HCL INJ/PF 20 MG/1 ML SDV ONE ×2 (18:13→20:54)
[2017-03-20] MEDS ORDERED: MISOPROSTOL 0.2 MG TABLET ONE (19:38)
[2017-03-20] MEDS ORDERED: OXYTOCIN/NORMAL SALINE 20 UNIT/1,000 ML RTUINJ ONE (19:38)
[2017-03-20] MEDS ORDERED: LIDOCAINE 1% INJ-PF (10 MG/ML) 30 ML SDV ONE (19:38)
[2017-03-20] MEDS ORDERED: ACETAMINOPHEN 325 MG TABLET PO ONE (21:08)
[2017-03-20] MEDS ORDERED: ACETAMINOPHEN 325 MG TABLET ONE (21:13)
[2017-03-20] MEDS ORDERED: NALBUPHINE HCL INJ 10 MG/1 ML AMPULE INJ ONE (21:34)
[2017-03-20] MEDS ORDERED: NALBUPHINE HCL INJ 10 MG/1 ML AMPULE ONE (21:36)
[2017-03-20] MEDS ORDERED: OXYTOCIN/NORMAL SALINE 20 UNIT/1,000 ML RTUINJ IV PRN (21:37)
--- NOTE | 2017-03-20 21:50 | L&D Progress Notes ---
PROGRESS NOTES Datetime Report Generated by CPN: 03/20/2017 21:50 PROGRESS NOTE Impression: Normal Progression of Labor Procedures: Sterile Vag Exam Plan: Continue Present Management; Induction; Cervical Ripening Informed Consent Obtained: Vaginal Delivery; Induction of Labor; Risks, Benefits and Alternatives Discussed Vital Signs : Reviewed; Within Normal Limits Comment: 36yo at 36+4ega with CHTN and SuperImposed PreE with intermittent MOROCHO presented from [facility] appt today due to severe range BPs and MOROCHO (intermittent). Currently on Procardia XL 30mg po BID for BP control. History of Seizures - stopped meds 1 yr ago. Abnl AFP with + OSB. She is on 4mg of Folic Acid due to h/o seizure disorder. Pt has had mild to normal range BPs with intermittent severe range BPs. Pt closed on presentation. Cervidil started at approx noon. Cvx now 1cm and will plan for pitocin and COoks catheter. magensium sulfate started due to CHTN with severe range BPs. Anticipate . H/o x 3. VAGINAL EXAM Dilatation: 1 Dilatation: closed Effacement: 60 Station: -2 Contractions: q 1-2 Contractions: irreg MEMBRANES Membranes: Intact Membranes: Intact FETUS A FHR - Baseline: 130 Monitoring: External US Variability: Moderate 6-25bpm Decelerations: None FHR Category: Category I : 36+4 Estimated Weight (gm): 3100 Presentation: Vertex SIGNATURE SIGNATURE: [id number];[id number] SIGNATURE: [id number] SIGNATURE: [id number] SIGNATURE: [id number] SIGNATURE: [id number] Signature: with User ID: [email or web address]
[2017-03-21] MEDS: VANCOMYCIN HCL 1,000 MG in DEXTROSE 5%-WATER 250 ML IV SCH ×2 (04:02→16:10)
[2017-03-21] MEDS ORDERED: ACETAMINOPHEN 325 MG TABLET ONE (04:10)
[2017-03-21] MEDS ORDERED: CITRIC ACID/SODIUM CITRATE ORAL SOLN 15 ML UDCUP ONE ×2 (04:35→23:58)
--- NOTE | 2017-03-21 04:40 | L&D Progress Notes ---
PROGRESS NOTES Datetime Report Generated by CPN: 03/21/2017 04:40 PROGRESS NOTE Impression: Normal Progression of Labor Procedures: Sterile Vag Exam Plan: Continue Present Management; Induction Informed Consent Obtained: Vaginal Delivery; Induction of Labor; Risks, Benefits and Alternatives Discussed Vital Signs : Reviewed; Within Normal Limits Comment: Cooks catheter removed as it was in vagina. cvx 5-6cm/60/-2 but not in active labor yet. Pit at 12. Unable to AROM due to station too high. Will attempt to AROM when descent improved. Reassuring FWB. VAGINAL EXAM Dilatation: 5 Effacement: 60 Station: -2 Contractions: q 2-3 FETUS A FHR - Baseline: 125 Monitoring: External US Variability: Moderate 6-25bpm Accelerations: 15X15 Decelerations: None FHR Category: Category I FETUS C SIGNATURE: [id number];[id number] Signature: with User ID: [email or web address]
[2017-03-21] MEDS: MAGNESIUM SULFATE 20 GM/500 ML RTUINJ IV PRN (05:08)
[2017-03-21] MEDS ORDERED: MAG HYDROX/AL HYDROX/SIMETH SUSP 30 ML UDCUP PO ONE ×2 (06:19→15:40)
[2017-03-21] MEDS ORDERED: METOCLOPRAMIDE HCL ORAL SOLN 10 MG/10 ML UDCUP PO ONE ×2 (06:19→08:00)
[2017-03-21] MEDS ORDERED: LIDOCAINE 2% VISCOUS SOLN 20 ML UDCUP PO ONE ×2 (06:19→08:00)
[2017-03-21 07:12] LABS: HEMATOCRIT 35.5 % (36.0-47.0); HEMOGLOBIN 12.2 g/dL (12.0-15.5); MEAN CORPUSCULAR HGB CONC 34.3 g/dL (32.0-36.0); MEAN CORPUSCULAR VOLUME 90 fl (80-97); PLATELET COUNT 201 10^3/uL (150-450); RED BLOOD COUNT 3.93 10^6/uL (3.72-5.28); RED CELL DISTRIBUTION WIDTH 13.5 % (11.5-14.0)
[2017-03-21 07:20] LABS: ALANINE AMINOTRANSFERASE 19 U/L (9-52); ALBUMIN 3.7 g/dL (3.5-5.0); ALKALINE PHOSPHATASE 99 U/L (38-126); ANION GAP 10 (5-19); ASPARTATE AMINO TRANSFERASE 17 U/L (14-36); BILIRUBIN,DIRECT 0.1 mg/dL (0.0-0.4); BILIRUBIN,TOTAL 0.4 mg/dL (0.2-1.3); BLOOD UREA NITROGEN 4 mg/dL (7-20); CALCIUM 7.8 mg/dL (8.4-10.2); CARBON DIOXIDE 19 mmol/L (22-30); CHLORIDE 106 mmol/L (98-107); GLUCOSE 113 mg/dL (75-110); LDH 468 U/L (313-618); POTASSIUM 3.9 mmol/L (3.6-5.0); SODIUM 135.1 mmol/L (137-145); TOTAL PROTEIN 6.6 g/dL (6.3-8.2); URIC ACID 4.8 mg/dL (2.5-6.2)
[2017-03-21 07:48] LABS: WHITE BLOOD COUNT 13.2 10^3/uL (4.0-10.5)
[2017-03-21 07:49] LABS: ABSOLUTE LYMPHOCYTES# (MANUAL) 0.8 10^3/uL (0.5-4.7); ABSOLUTE MONOCYTES # (MANUAL) 0.5 10^3/uL (0.1-1.4); ABSOLUTE NEUTROPHILS# (MANUAL) 11.9 10^3/uL (1.7-8.2); BASOPHILS % (MANUAL) 0 % (0-2); EOSINOPHILS % (MANUAL) 0 % (0-6); LYMPHOCYTES % (MANUAL) 6 % (13-45); MONOCYTES % (MANUAL) 4 % (3-13); SEGMENTED NEUTROPHILS % (MAN) 90 % (42-78); TOTAL CELLS COUNTED 100
[2017-03-21 07:50] LABS: PLATELET COMMENT ADEQUATE; RBC MORPHOLOGY COMMENT NORMO-CYTIC/CHROMIC; TOXIC GRANULATION 1+
[2017-03-21] MEDS ORDERED: EPHEDRINE SULFATE INJ 50 MG/1 ML AMPULE ONE (09:18)
[2017-03-21] MEDS ORDERED: MISOPROSTOL 0.2 MG TABLET ONE (09:18)
[2017-03-21] MEDS ORDERED: BUPIVACAINE HCL 0.25 % INJ/PF (2.5 MG/1 ML) 30 ML VIAL ONE (09:19)
[2017-03-21] MEDS ORDERED: FENTANYL/BUPIVACAINE/NS/PF 200 MCG/100 ML RTUINJ EPI ONE (09:19)
[2017-03-21] MEDS ORDERED: OXYTOCIN/NORMAL SALINE 0 UNIT/0 ML RTUINJ ONE (09:19)
[2017-03-21] MEDS ORDERED: LIDOCAINE 1% INJ-PF (10 MG/ML) 30 ML SDV ONE (09:19)
--- NOTE | 2017-03-21 09:57 | L&D Progress Notes ---
PROGRESS NOTES Datetime Report Generated by CPN: 03/21/2017 09:57 PROGRESS NOTE Impression: Normal Progression of Labor; Reassuring Heart Rate Plan: Continue Present Management; Induction Vital Signs : Reviewed Comment: Sitting up for epidural, Cat 1 strip, uc's q 2-3 x 60 sec, Pitocin decreased FETUS A Accelerations: 15X15 FETUS C SIGNATURE: [id number];[id number] Assignment: Perri Love MD Signature: with User ID: Terrance : with User ID: Terrance
--- NOTE | 2017-03-21 10:05 | L&D Progress Notes ---
PROGRESS NOTES Datetime Report Generated by CPN: 03/21/2017 10:04 PROGRESS NOTE Comment: in middle of epidural, pt was anxious, could not tolerate Dr. touching her back, Epidural procedure stopped, Nubain 10mg IV for pain FETUS C SIGNATURE: [id number];[id number] Assignment: Perri Love MD Signature: with User ID: [email or web address] : with User ID: [email or web address]
[2017-03-21] MEDS ORDERED: NALBUPHINE HCL INJ 10 MG/1 ML AMPULE IV ONE (10:06)
[2017-03-21] MEDS ORDERED: NALBUPHINE HCL INJ 10 MG/1 ML AMPULE ONE (10:08)
--- NOTE | 2017-03-21 10:51 | L&D Progress Notes ---
PROGRESS NOTES Datetime Report Generated by CPN: 03/21/2017 10:51 PROGRESS NOTE Impression: Reassuring Heart Rate Plan: Induction Comment: Sleeping, hsb at BS, tachysystole, Pitocin decreased to 8, BP stable FETUS A FHR - Baseline: 120 Variability: Moderate 6-25bpm Decelerations: None FETUS C SIGNATURE: [id number];[id number] Assignment: Perri Love MD Signature: with User ID: Terrance : with User ID: Terrance
--- NOTE | 2017-03-21 11:09 | L&D Progress Notes ---
PROGRESS NOTES Datetime Report Generated by CPN: 03/21/2017 11:09 PROGRESS NOTE Impression: Normal Progression of Labor Procedures: Artificial ROM; Scalp Electrode; Sterile Vag Exam Informed Consent Obtained: Vaginal Delivery Comment: VE = 8-9/100/vtx/-1, FSE applied to ROM, small fluid clear, + scalp stimulation, pt sleeping, feeling pressure FETUS A Monitoring: External US FETUS C SIGNATURE: [id number];10,[id number] Assignment: Perri Love MD Signature: with User ID: Terrance : with User ID: Terrance
--- NOTE | 2017-03-21 11:19 | L&D Progress Notes ---
PROGRESS NOTES Datetime Report Generated by CPN: 03/21/2017 11:19 PROGRESS NOTE Comment: Pitocin off FETUS C SIGNATURE: [id number];[id number] Assignment: Perri Love MD Signature: with User ID: [email or web address] : with User ID: [email or web address]
[2017-03-21] MEDS ORDERED: HYDRALAZINE HCL INJ/PF 20 MG/1 ML SDV ONE ×3 (13:46→23:22)
[2017-03-21] MEDS ORDERED: HYDRALAZINE HCL INJ/PF 20 MG/1 ML SDV IV ONE (13:49)
--- NOTE | 2017-03-21 14:06 | L&D Progress Notes ---
PROGRESS NOTES Datetime Report Generated by CPN: 03/21/2017 14:05 PROGRESS NOTE Comment: Sitting up in bed, uc's q 3, feeling some pressure, Cat 1 strip, will restart Pitocin @ 2 FETUS C SIGNATURE: [id number];10,[id number] Assignment: Perri Love MD Signature: with User ID: [email or web address] : with User ID: [email or web address]
--- NOTE | 2017-03-21 15:00 | L&D Progress Notes ---
PROGRESS NOTES Datetime Report Generated by CPN: 03/21/2017 15:00 PROGRESS NOTE Comment: Pit restarted, minimal pressure, VE 8/vtx/-2, had pt push, head applied to cervix with push, placed back on peanut ball, family at BS FETUS C SIGNATURE: [id number];[id number] Assignment: Perri Love MD Signature: with User ID: [email or web address] : with User ID: [email or web address]
[2017-03-21] MEDS ORDERED: MAG HYDROX/AL HYDROX/SIMETH SUSP 30 ML UDCUP ONE (15:37)
[2017-03-21] MEDS ORDERED: FENTANYL CITRATE INJ/PF 100 MCG/2 ML AMPUL ONE (22:33)
[2017-03-21] MEDS ORDERED: FENTANYL CITRATE INJ/PF 100 MCG/2 ML AMPUL IV ONE (22:35)
[2017-03-21] MEDS ORDERED: DIPHENHYDRAMINE HCL 50 MG/ML VIAL ONE (23:06)
[2017-03-21] MEDS ORDERED: CEFAZOLIN 2 GM/D5W RTU 2 GM/50 ML RTUPB IV ONE (23:58)
[2017-03-22] MEDS ORDERED: CEFAZOLIN 2 GM/D5W RTU 0 GM/0 ML RTUPB IV ONE
[2017-03-22] MEDS ORDERED: CITRIC ACID/SODIUM CITRATE ORAL SOLN 15 ML UDCUP ONE
[2017-03-22] MEDS ORDERED: AZITHROMYCIN INJ 500 MG VIAL IV ONE (00:02)
[2017-03-22] MEDS ORDERED: FENTANYL CITRATE INJ/PF 100 MCG/2 ML AMPUL ONE ×3 (00:23→07:50)
[2017-03-22] MEDS ORDERED: OXYTOCIN 10 UNIT/ML VIAL ONE (00:23)
[2017-03-22] MEDS ORDERED: PROPOFOL INJ 200 MG/20 ML VIAL IV ONE (00:23)
[2017-03-22] MEDS ORDERED: EPHEDRINE SULFATE INJ 50 MG/1 ML AMPULE ONE (00:23)
[2017-03-22] MEDS ORDERED: MIDAZOLAM 2 MG/2 ML INJ ONE (00:24)
[2017-03-22] MEDS ORDERED: KETAMINE HCL INJ 500 MG/10 ML VIAL ONE (00:32)
[2017-03-22] MEDS ORDERED: MORPHINE SULFATE 10 MG/ML INJ ONE (00:32)
[2017-03-22] MEDS ORDERED: AZITHROMYCIN 500 MG in DEXTROSE 5%-WATER 250 ML IV SCH (01:00)
[2017-03-22] MEDS ORDERED: MEPERIDINE HCL/PF INJ 25 MG/1 ML DISP.SYRIN IV PRN (01:11)
[2017-03-22] MEDS ORDERED: PROMETHAZINE HCL INJ 25 MG/1 ML VIAL IV PRN ×2 (01:11→04:02)
[2017-03-22] MEDS ORDERED: MORPHINE SULFATE 10 MG/ML INJ IV PRN (01:11)
[2017-03-22] MEDS ORDERED: DIPHENHYDRAMINE HCL 50 MG/ML VIAL IV PRN (01:11)
[2017-03-22] MEDS ORDERED: ONDANSETRON HCL INJ/PF 4 MG/2 ML SDV IV PRN (01:11)
[2017-03-22] MEDS ORDERED: FENTANYL CITRATE INJ/PF 100 MCG/2 ML AMPUL IV PRN ×3 (01:11)
--- NOTE | 2017-03-22 02:19 | OPERATIVE REPORT E ---
Operative Report NAME: AMADA BERNAL : 1980 AGE: 36Y DATE OF SURGERY: 03/22/2017 ROOM: LR200 PREOPERATIVE DIAGNOSIS: 1. Intrauterine at 36 weeks and 6 days. 2. Failure to progress. 3. Superimposed preeclampsia. 4. Undesired fertility. POSTOPERATIVE DIAGNOSIS: 1. Intrauterine at 36 weeks and 6 days. 2. Failure to progress. 3. Superimposed preeclampsia. 4. Undesired fertility. OPERATION: Low-transverse hysterotomy with [place] tubal ligation. SURGEON: ROSELYN WHARTON M.D. ANESTHESIA: Dr. Hubbard with a spinal. FINDINGS: A male , cephalic presentation, with Apgars of 8 and 9. ESTIMATED BLOOD LOSS: 600 SPECIMENS REMOVED: Bilateral fallopian tubes. DESCRIPTION OF PROCEDURE: The patient was taken to the operating room, prepared and draped in the normal sterile fashion in the supine position with leftward tilt. A transverse skin incision was made with a scalpel and carried through to the underlying layer of fascia with the same scalpel. The fascia was incised and extended laterally with Yomaira. The fascia was then dissected from the rectus muscle sharply with Yomaira. The rectus muscle was divided. Peritoneal cavity was entered bluntly. The bladder blade was inserted. The hysterotomy was nicked with a scalpel and extended laterally with surgeon finger fracture. The infant was then delivered atraumatically, and the nose and mouth were suctioned with a suction bulb. The cord was clamped and cut, and the was handed off to awaiting packing and shipping clerk. The cord blood was collected. The placenta was removed manually. The uterus was exteriorized and cleared of clots and debris. The hysterotomy was closed with 0 Vicryl in a running locked fashion. A second layer of the same suture was used to ensure hemostasis. Beginning with the fallopian tube on the right, the fallopian tube was grasped with a [place], and the mesosalpinx was divided using the Bovie. A 3-cm section of the fallopian tube was tied off with 2 pieces of 2-0 chromic. The intermediate section was removed with Metzenbaums, and the pedicles were coagulated with Bovie to ensure hemostasis. This was repeated on the left without difficulty. The uterus was returned to the abdomen, and the peritoneal cavity was cleared of clot and debris. The pedicles were reinspected and found to be hemostatic as well as the hysterotomy. The rectus muscle and peritoneum were reapproximated with a mattress stitch of 2-0 chromic. The fascia was closed with 0 Vicryl. The subcutaneous layer was closed with plain catgut, and the skin was closed with 4-0 Vicryl. The patient tolerated the procedure well. Sponge, lap, and needle counts were correct x2. The patient was taken to recovery in stable condition. DICTATING PHYSICIAN: ROSELYN WHARTON M.D. [id number] PHY#: [id number] ID: [id number] JOB#: [id number] ACCT: [id number] cc:ROSELYN WHARTON M.D. > MTDD
[2017-03-22] MEDS ORDERED: OXYTOCIN/NORMAL SALINE 20 UNIT/1,000 ML RTUINJ ONE (03:12)
[2017-03-22] MEDS ORDERED: OXYCODONE-ACETAMINOPHEN 5-325 MG TABLET PO PRN (04:02)
[2017-03-22] MEDS ORDERED: ACETAMINOPHEN 100 ML IV PRN (04:02)
[2017-03-22] MEDS ORDERED: MEASLES,MUMPS&RUBELLA VACC/PF 0.5 ML VIAL SUBCUT PRN (04:02)
[2017-03-22] MEDS ORDERED: OXYTOCIN/NORMAL SALINE 20 UNIT/1,000 ML RTUINJ IV PRN (04:02)
[2017-03-22] MEDS ORDERED: HYDROMORPHONE HCL INJ/PF 2 MG/ML AMPULE IV PRN (04:02)
[2017-03-22] MEDS ORDERED: DIPH/PERTUSS(ACELL)/TETANUS VAC/PF 0.5 ML SYR (>=10YO) IM PRN (04:02)
[2017-03-22] MEDS ORDERED: ACETAMINOPHEN 325 MG TABLET PO PRN (04:02)
[2017-03-22] MEDS ORDERED: IBUPROFEN 800 MG TABLET ONE (04:38)
[2017-03-22] MEDS ORDERED: KETOROLAC TROMETHAMINE INJ/PF 30 MG/1 ML SDV ONE ×3 (04:38→19:57)
[2017-03-22] MEDS ORDERED: ACETAMINOPHEN 100 ML IV ONE (04:38)
[2017-03-22] MEDS ORDERED: HYDRALAZINE HCL INJ/PF 20 MG/1 ML SDV IV ONE ×2 (04:56→23:15)
[2017-03-22] MEDS ORDERED: HYDRALAZINE HCL INJ/PF 20 MG/1 ML SDV ONE (04:59)
[2017-03-22] MEDS: KETOROLAC TROMETHAMINE INJ/PF 30 MG/1 ML SDV IV SCH ×4 (05:24→20:08)
[2017-03-22] MEDS ORDERED: IBUPROFEN 800 MG TABLET PO SCH (06:00)
[2017-03-22] MEDS ORDERED: MAGNESIUM SULFATE 4 GM/100 ML RTUPB IV ONE ×2 (06:14→06:15)
[2017-03-22] MEDS ORDERED: LABETALOL HCL 200 MG TABLET ONE ×2 (06:14→17:42)
[2017-03-22] MEDS ORDERED: MAGNESIUM SULFATE 20 GM/500 ML RTUINJ IV PRN (06:15)
[2017-03-22] MEDS: LABETALOL HCL 200 MG TABLET PO SCH ×2 (06:50→17:49)
[2017-03-22] MEDS ORDERED: PHENYLEPHRINE HCL INJ/PF 10 MG/1 ML SDV ONE (08:13)
[2017-03-22] MEDS ORDERED: FENTANYL CITRATE INJ/PF 100 MCG/2 ML AMPUL IV ONE (08:15)
[2017-03-22] MEDS ORDERED: DOCUSATE SODIUM 100 MG CAPSULE ONE ×2 (11:31→17:42)
[2017-03-22] MEDS ORDERED: PRENATAL VITAMIN W DHA CAPSULE PO ONE (11:31)
[2017-03-22 11:39] LABS: ABSOLUTE LYMPHOCYTES (AUTO) 1.2 10^3/uL (0.5-4.7); ABSOLUTE MONOCYTES (AUTO) 0.6 10^3/uL (0.1-1.4); ABSOLUTE NEUT (AUTO) 14.2 10^3/uL (1.7-8.2); BASOPHILS % (AUTO) 0.2 % (0-2); HEMATOCRIT 28.3 % (36.0-47.0); LYMPHOCYTES % (AUTO) 7.4 % (13-45); MEAN CORPUSCULAR HEMOGLOBIN 31.3 pg (27.0-33.4); MEAN CORPUSCULAR HGB CONC 33.8 g/dL (32.0-36.0); MEAN CORPUSCULAR VOLUME 93 fl (80-97); MONOCYTES % (AUTO) 3.8 % (3-13); PLATELET COUNT 179 10^3/uL (150-450); RED BLOOD COUNT 3.05 10^6/uL (3.72-5.28); RED CELL DISTRIBUTION WIDTH 13.8 % (11.5-14.0); SEGMENTED NEUTROPHILS % (AUTO) 88.6 % (42-78); TOTAL CELLS COUNTED % (AUTO) 100 %
[2017-03-22 11:43] LABS: HEMOGLOBIN 9.6 g/dL (12.0-15.5)
[2017-03-22 11:51] LABS: ALANINE AMINOTRANSFERASE 16 U/L (9-52); ALBUMIN 2.5 g/dL (3.5-5.0); ALKALINE PHOSPHATASE 68 U/L (38-126); ANION GAP 10 (5-19); ASPARTATE AMINO TRANSFERASE 17 U/L (14-36); BILIRUBIN,DIRECT 0.3 mg/dL (0.0-0.4); BILIRUBIN,TOTAL 0.4 mg/dL (0.2-1.3); BLOOD UREA NITROGEN 5 mg/dL (7-20); CALCIUM 7.3 mg/dL (8.4-10.2); CARBON DIOXIDE 17 mmol/L (22-30); CHLORIDE 107 mmol/L (98-107); GLUCOSE 185 mg/dL (75-110); LDH 557 U/L (313-618); POTASSIUM 3.5 mmol/L (3.6-5.0); SODIUM 133.5 mmol/L (137-145); URIC ACID 5.2 mg/dL (2.5-6.2)
[2017-03-22 12:03] LABS: MAGNESIUM 5.3 mg/dL (1.6-2.3)
[2017-03-22] MEDS: DOCUSATE SODIUM 100 MG CAPSULE PO SCH ×2 (12:05→17:50)
[2017-03-22] MEDS: PRENATAL VITAMIN W DHA CAPSULE PO SCH (12:05)
[2017-03-22] MEDS ORDERED: OXYCODONE-ACETAMINOPHEN 5-325 MG TABLET ONE ×2 (17:42→17:46)
[2017-03-22] MEDS: OXYCODONE-ACETAMINOPHEN 5-325 MG TABLET PO PRN (17:46)
--- NOTE | 2017-03-22 19:29 | Warning Signs in Babies ---
VOD Warning Signs Datetime Report Generated by [facility]: 03/22/2017 19:29 VOD#608 -Warning Signs in Babies: Viewed with Parent(s)/Family (12/10/2016 21:55:Germania Richmond RN)
--- NOTE | 2017-03-22 21:21 | Admission Physical ---
Datetime Report Generated by CPN: 03/22/2017 21:21 CURRENT ADMISSION Chief Complaint: Sent from OB Office for Evaluation and Treatment - Please Specify; Other Chief Complaint Other: CHTN with superimposed preeclampsia with severe features Indication for Induction: Chronic Primary/Essential HTN; PreEclampsia Indication for Induction: , Intrauterine Admit Plan: Admit to Unit; Initiate Labor Induction Protocol ALLERGIES Medication Allergies: Yes Medication Allergies: Penicillins/SV/Anaphylaxis (03/20/2017); latex/MO/Hives (03/20/2017) Medication Allergies: Penicillins/SV/Anaphylaxis (03/13/2017); latex/MO/Hives (03/13/2017) Medication Allergies: Penicillins/SV/Anaphylaxis (03/10/2017); latex/MO/Hives (03/10/2017) Medication Allergies: Penicillins/SV/Anaphylaxis (03/05/2017); latex/MO/Hives (03/05/2017) Medication Allergies: Penicillins/SV/Anaphylaxis (02/27/2017); latex/MO/Hives (02/27/2017) Medication Allergies: Penicillins/SV/Anaphylaxis (01/19/2017); latex/MO/Hives (01/19/2017) Medication Allergies: Penicillins/SV/Anaphylaxis (12/26/2016); latex/MO/Hives (12/26/2016) Medication Allergies: Penicillins (07/31/2016); latex (07/31/2016) Latex: Latex Allergies Food Allergies: none Environmental Allergies: none OBSTETRICAL HISTORY EDC: 04/13/2017 00:00 : 4 Para: 3 Term: 3 : 0 SAB: 0 IAB: 0 Ectopic: 0 Livin Gestational Diabetes: No Rh Sensitization: No Incompetent Cervix: No ANTIONETTE: No Infertility: No ART Treatment: No Uterine Anomaly: No IUGR: No Hx Previous C/S: No Macrosomia: No Hx Loss/Stillborn: No PIH: No Hx : No Placenta Previa/Abruption: No Depression/PP Depression: No PTL/PROM: No Post Hemorrhage: No Current Procedures: Ultrasound Obstetrical History Comments: 2001 41 weeks baby boy 2006 41 weeks baby boy 2009 40 weeks baby girl 2016 current SEE RECORDS Alcohol: No Marijuana : No Cocaine: No Other Illicit Drugs: No Cigarettes: Former Smoker. [id number] MEDICAL HISTORY Diabetes: No Blood Transfusion: No Pulmonary Disease (Asthma, TB): No Breast Disease: No Hypertension: Yes Sales Operations Coordinator Surgery: No Heart Disease: No Hosp/Surgery: No Autoimmune Disorder: No Anesthetic Complications: No Kidney Disease: No Abnormal Pap Smear: No Neuro/Epilepsy: Yes Psychiatric Disorders: No Other Medical Diseases: No Hepatitis/Liver Disease: No Significant Family History: No Varicosities/Phlebitis: No Trauma/Violence : No Thyroid Dysfunction: No Medical History Comments: pt has hx of seizure, last one was in September 2016 INFECTIOUS HISTORY Gonorrhea: No Genital Herpes: No Chlamydia: No Tuberculosis: No Syphilis: No Hepatitis: No HIV/AIDS Exposure: No Rash or Viral Illness: No HPV: No PHYSICAL EXAM General: Normal HEENT: Normal Neurologic: Normal Thyroid: Deferred Heart: Normal Lungs: Normal Breast: Deferred Back: Normal Abdomen: Normal Genitourinary Exam: Deferred Extremities: Normal DTRs: Normal Pelvic Type: Adequate Vital Signs: Reviewed Details Vital Signs: mild range elevated BPs VAGINAL EXAM Dilatation: 5 Dilatation: 1 Dilatation: closed Effacement: 60 Effacement: 60 Station: -2 Station: -2 Contraction Comments: q 2-3 Contraction Comments: q 1-2 Contraction Comments: irreg MEMBRANES Membranes: Intact Membranes: Intact FETUS A EGA: 36.4 Monitoring: External US FHR- Baseline: 130 Variability: Moderate 6-25bpm Accelerations: 15X15 Decelerations: None FHR Category: Category I Estimated Weight (gm): 3100 Presentation: Vertex Admit Comment: at 36+4. CHTN with superimposed pre-eclampsia with severe range BPs in office at [facility]. pelvis proven to 7#6oz. denies MOROCHO/visual changes/RUQ pain. DTRs 1+/1+. plan is for magnesium sulfate, cervidil for cervical ripening. comgt with Dr Aiken. anticipate . PLANS FOR LABOR AND DELIVERY Labor and Delivery: Placenta Request Pain Management: Natural Feeding Preference: Both Benefit of Breast Feed Discussed: Yes Circumcision: Yes INFORMED CONSENT Informed Consent Obtained: Vaginal Delivery Informed Consent Obtained: Vaginal Delivery; Induction of Labor; Risks, Benefits and Alternatives Discussed Informed Consent Obtained: Vaginal Delivery; Induction of Labor; Risks, Benefits and Alternatives Discussed Assignment: Neema Aiken MD Signature: with User ID: [email or web address] : with User ID: [email or web address]
[2017-03-23] MEDS: OXYCODONE-ACETAMINOPHEN 5-325 MG TABLET PO PRN ×4 (00:40→23:18)
[2017-03-23] MEDS: SIMETHICONE 80 MG TAB.CHEW PO PRN ×4 (00:43→23:18)
[2017-03-23] MEDS: KETOROLAC TROMETHAMINE INJ/PF 30 MG/1 ML SDV IV SCH ×2 (05:17→14:46)
[2017-03-23] MEDS: LABETALOL HCL 200 MG TABLET PO SCH ×2 (05:18→18:36)
--- NOTE | 2017-03-23 06:49 | Delivery Summary ---
Del Sum A-C Datetime Report Generated by CPN: 03/23/2017 06:48 DELIVERY PERSONNEL DELIVERY PERSONNEL: [id number] Delivery Doctor:: Perri Love MD Anesthesiologist:: Willam Hubbard MD CNC SERVICE TECHNICIAN:: Ryann Bansal CRNA Parts Driver:: Germania Richmond RN Neonatal Nurse Practitioner:: TEN Rick Nursery Nurse:: Shayna Lombardo RN MSN Teaching Specialists/ARCHITECTURAL DRAFTSMAN: ST Elissa Teaching Specialists/ARCHITECTURAL DRAFTSMAN: Kitty Semar, DE ICER ELEMENT WINDER MATERNAL INFORMATION Delivery Anesthesia: Spinal Medications After Delivery: Pitocin Drip 20 Units/1000ml NSS Maternal Complications: None LABOR SUMMARY EDC: 04/13/2017 00:00 No. Babies in Womb: 1 Attempted: No Labor Anesthesia: None LABOR INFORMATION Reason for Induction: Chronic Primary/Essential HTN Onset of Labor: 03/21/2017 09:20 Cervical Ripening Agents: Cervidil Oxytocin: Induction Group B Beta Strep: positive Antibiotics # of Doses: 3 Antibiotics Time of Last Dose: 1610 Name of Antibiotic Given: vancomycin Steroids Given: None Reason Steroids Not Administered: Not Applicable MEMBRANES Membranes Rupture Method: Artificial Membranes Rupture Method: Artificial Rupture of Membranes: 03/21/2017 17:40 Length of Rupture (hr): 7.22 Amniotic Fluid Color: Clear Amniotic Fluid Color: Clear Amniotic Fluid Amount: Moderate Amniotic Fluid Amount: Small Amniotic Fluid Odor: Normal STAGES OF LABOR Stage 3 hr: 0 Stage 3 min: 2 Total Time in Labor hr: 15 Total Time in Labor min: 35 VAGINAL DELIVERY Episiotomy: None Laceration #1: None Laceration Extension #1: N/A Laceration Repair: Not Applicable Sponge Count Correct: N/A Sharps Count Correct: N/A CSECTION DELIVERY Primary Indication: Failure of Descent Secondary Indication: N/A CSection Urgency: Non-Scheduled CSection Incidence: Primary Labor: Labor Elective: Nonelective CSection Incision: Lower Uterine Transverse BABY A INFORMATION Delivery Date/Time: 03/22/2017 00:53 Method of Delivery: Born in Route : No : N/A Forceps: N/A Vacuum Extraction: N/A Shoulder Dystocia : No PRESENTATION/POSITION BABY A Presentation: Cephalic Cephalic Presentation: Vertex Breech Presentation: N/A PLACENTA INFORMATION BABY A Placenta Delivery Time : 03/22/2017 00:55 Placenta Method of Delivery: Manual Removal Placenta Status: Delivered SCORES BABY A Heart Rate 1 min: >100 bpm Resp Effort 1 min: Good Cry Reflex Irritability 1 min: Cough or Sneeze or Pulls Away Muscle Tone 1 min: Active Motion Color 1 min: Blue/Pale Resuscitation Effort 1 min: Tactile Stimulation SCORE 1 MIN: 8 Heart Rate 5 min: >100 bpm Resp Effort 5 min: Good Cry Reflex Irritability 5 min: Cough or Sneeze or Pulls Away Muscle Tone 5 min: Active Motion Color 5 min: Body Fox, Extremities Blue Resuscitation Effort 5 min: Tactile Stimulation SCORE 5 MIN: 9 INFANT INFORMATION BABY A Gestational Age at Delivery: 36.6 Gestational Status: Late - 34- 36.6 Weeks Infant Outcome : Liveborn Condition : Stable Infant Sex: Male IDENTIFICATION BABY A Infant Verification Date/Time: 03/22/2017 01:01 ID Band Number: [id number] Mother's Name Verified: Yes RN Verifying : SLilian Shultz, RNC _ ELilian Braun, RN WEIGHT/LENGTH BABY A Infant Birthweight (gm): 3180 Weight (lb): 7 Infant Weight (oz): 0 Infant Length (in): 21.00 Infant Length (cm): 53.34 CORD INFORMATION BABY A No. Cord Vessels: 3 Nuchal Cord : N/A Cord Blood Taken: Yes-For Eval (Mom's Blood Type - or O+) Suction: Mouth; Nose ASSESSMENT BABY A Skin to Skin: Yes BABY B INFORMATION : N/A SIGNATURES : I was personally available for consultation and serving as supervising physician for the MLP.
[2017-03-23 08:37] LABS: HEMATOCRIT 26.6 % (36.0-47.0); HEMOGLOBIN 9.1 g/dL (12.0-15.5); MEAN CORPUSCULAR HEMOGLOBIN 31.2 pg (27.0-33.4); MEAN CORPUSCULAR HGB CONC 34.1 g/dL (32.0-36.0); MEAN CORPUSCULAR VOLUME 92 fl (80-97); PLATELET COUNT 196 10^3/uL (150-450); WHITE BLOOD COUNT 9.8 10^3/uL (4.0-10.5)
[2017-03-23] MEDS: PRENATAL VITAMIN W DHA CAPSULE PO SCH (10:02)
[2017-03-23] MEDS: DOCUSATE SODIUM 100 MG CAPSULE PO SCH ×2 (10:03→18:35)
--- NOTE | 2017-03-23 13:35 | PDOC PROGRESS REPORT ---
Subjective-OB Progress Note for:: 03/23/17 Subjective: 36yo G4 now P4 s/p primary with tubal ligation ppd1. Ambulating, voiding and passing flatus without difficulty. Denies headache, visual disturbances or other concerns. Physical Exam (OB) Vital Signs: Temp Pulse Resp BP Pulse Ox 98.6 F 96 18 122/73 100 03/23/17 12:32 03/23/17 12:32 03/23/17 12:32 03/23/17 12:32 03/23/17 12:32 - General General Appearance: Appears well In distress: None - PIH/Pre-Eclampsia DTR's: 2 + Clonus: Negative Headache: Absent Epigastric Pain: No Visual Changes: No - Dressing Removed: No - opsite dressing D&I, no redness or swelling, no new drainage Incision: Well Approximated - Bilateral Tubal Ligation Dressing Removed: No - opsite - Lochia Lochia Amount: Scant < 10 ml Lochia Color: Rubra/Red - Abdomen Description: Soft Hernia Present: No Fundal Description: Firm, Midline Fundal Height: u/u - u/2 - Respiratory Respiratory Status: No respiratory distress - Extremities Upper extremity: Normal inspection Lower extremities: Normal inspection - Neurological Cognition: Normal Orientation: AAOx4 - Psychological Associated symptoms: Normal affect, Normal mood Objective-Diagnostic Laboratory: 03/23/17 08:12 03/22/17 11:13 03/23/17 08:12 WBC 9.8 RBC 2.90 L Hgb 9.1 L Hct 26.6 L MCV 92 MCH 31.2 MCHC 34.1 RDW 14.0 Plt Count 196 Assessment and Plan(PN) - Assessment and Plan (1) Acute blood loss anemia Is this a current diagnosis for this admission?: Yes Plan: increase iron in diet and feso4 BID (2) Carrier of group B Streptococcus Is this a current diagnosis for this admission?: Yes Plan: delivered (3) Chronic hypertension with superimposed preeclampsia Is this a current diagnosis for this admission?: Yes Plan: continue to monitor for s/s of super imposed pre-e (4) Chronic hypertension affecting Is this a current diagnosis for this admission?: Yes Plan: continue to monitor for worsening s/s (5) Status post primary low transverse section Is this a current diagnosis for this admission?: Yes Plan: routine pp care (6) Admission for sterilization Is this a current diagnosis for this admission?: Yes Plan: routine pp care (7) delivery Is this a current diagnosis for this admission?: Yes Plan: routine pp care - Time Spent with Patient Time with patient: Less than 15 minutes Medications reviewed and adjusted accordingly: Yes - Disposition Anticipated Discharge: Home Within: within 24 hours
[2017-03-24] MEDS: LABETALOL HCL 200 MG TABLET PO SCH (05:34)
[2017-03-24] MEDS: OXYCODONE-ACETAMINOPHEN 5-325 MG TABLET PO PRN (08:50)
[2017-03-24] MEDS: DOCUSATE SODIUM 100 MG CAPSULE PO SCH (10:07)
[2017-03-24] MEDS: PRENATAL VITAMIN W DHA CAPSULE PO SCH (10:07)
[2017-03-24] MEDS: SIMETHICONE 80 MG TAB.CHEW PO PRN (10:07)
--- NOTE | 2017-03-24 10:46 | PDOC DISCHARGE SUMMARY ---
Final Diagnosis Discharge Date: 03/24/17 - Final Diagnosis (1) Acute blood loss anemia Is this a current diagnosis for this admission?: Yes (2) Admission for sterilization Is this a current diagnosis for this admission?: Yes (3) Carrier of group B Streptococcus Is this a current diagnosis for this admission?: Yes (4) Chronic hypertension affecting Is this a current diagnosis for this admission?: Yes (5) Chronic hypertension with superimposed preeclampsia Is this a current diagnosis for this admission?: Yes (6) delivery Is this a current diagnosis for this admission?: Yes (7) Status post primary low transverse section Is this a current diagnosis for this admission?: Yes Discharge Data - Discharge Medication Prescriptions: Oxycodone HCl/Acetaminophen [Percocet 5-325 mg Tablet] 2 tab PO Q4HP PRN #30 tablet PRN Reason: Docusate Sodium [Colace 100 mg Capsule] 100 mg PO BID #60 capsule Ferrous Sulfate 325 mg PO BID #60 tablet Ibuprofen [Motrin 800 mg Tablet] 800 mg PO Q6 #60 tablet Labetalol HCl [Normodyne 200 mg Tablet] 200 mg PO Q12A #60 tablet Home Medications: Docusate Sodium [Colace 100 mg Capsule] 100 mg PO BID #60 capsule 03/24/17 Ferrous Sulfate 325 mg PO BID #60 tablet 03/24/17 Ibuprofen [Motrin 800 mg Tablet] 800 mg PO Q6 #60 tablet 03/24/17 Labetalol HCl [Normodyne 200 mg Tablet] 200 mg PO Q12A #60 tablet 03/24/17 Oxycodone HCl/Acetaminophen [Percocet 5-325 mg Tablet] 2 tab PO Q4HP PRN #30 tablet 03/24/17 Gestational Age: 36.6 Reason(s) for Admission: Induction of Labor, PIH, Group B Strep Positive Procedures: NST Intrapartum Procedure(s): : Low Cervical, Transverse, Tubal Ligation - [place] Data Baby 1 Male at 1 minute: 8 at 5 minutes: 9 Weight: 3180 kg Home with Mother: Yes Complications: Yes - , failed iol - Diagnosis Test Laboratory: Temp Pulse Resp BP Pulse Ox 98.2 F 102 H 16 137/85 H 100 03/24/17 07:36 03/24/17 07:36 03/24/17 07:36 03/24/17 07:36 03/24/17 07:36 03/20/17 03/20/17 03/21/17 10:52 11:48 06:45 RBC 3.57 L 3.93 Hgb 11.1 L 12.2 Hct 32.5 L 35.5 L Urine Opiates Screen NEGATIVE 03/22/17 03/23/17 11:13 08:12 RBC 3.05 L 2.90 L Hgb 9.6 L D 9.1 L Hct 28.3 L 26.6 L Urine Opiates Screen - Discharge information/Instructions Discharge Activity: Activity As Tolerated, Balance Activity w/Rest, No Driving, No Lifting Over 10 Pounds, Pelvic Rest, No tub bath Discharge Diet: Regular Disposition: HOME, SELF-CARE Follow [facility]: [facility] in: 1, Weeks
[2017-03-24 12:21] VITALS: BP 134/86
== END 2017-03-24 15:30 | disposition home or self-care (01) | DRG 765 ==
LOC: LR 10:45 → 2S 03-22 20:18
PROVIDERS: ADMIT Obstetrics & Gynecology; ATTEND Obstetrics & Gynecology
PROC: 10D00Z1 Extraction of Products of Conception, Low, Open Approach (ICD-10-PCS; principal; 2017-03-22)
PROC: 0UB70ZZ Excision of Bilateral Fallopian Tubes, Open Approach (ICD-10-PCS; 2017-03-22)
DX: O11.4 Pre-existing hypertension with pre-eclampsia, complicating childbirth (principal); O99.354 Diseases of the nervous system complicating childbirth; D62 Acute posthemorrhagic anemia; G40.909 Epilepsy, unspecified, not intractable, without status epilepticus; O99.824 Streptococcus B carrier state complicating childbirth; O32.4XX0 Maternal care for high head at term, not applicable or unspecified; O60.14X0 Preterm labor third trimester with preterm delivery third trimester, not applicable or unspecified; Z3A.36 36 weeks gestation of pregnancy; O90.81 Anemia of the puerperium; Z37.0 Single live birth; Z30.2 Encounter for sterilization
CPT/HCPCS: 1961; 36415; 80053; 80307; 81001; 82570; 83615; 83735; 84156; 84550; 85025; 85027; 86592; 86701; 86850; 86900; 86901; 88302; 94799; J0131; J0360; J0456; J0690; J1200; J1885; J2250; J2270; J2300; J2370; J2590; J2704; J3010; J3370; J3475; J3490; J7060